=== PATIENT | male | born 1975 | race Two or more races ===

== ENCOUNTER 2020-04-02 14:53 | Inpatient (IN) | payer SELFPAY ==
[~2020-04-02] VITALS: Ht 190.5 cm; Wt 113.9 kg
[2020-04-02 17:45] LABS: BILIRUBIN,URINE NEGATIVE (NEG); CLARITY,URINE CLEAR; COLOR,URINE YELLOW; NITRITE,URINE NEGATIVE (NEG); PROTEIN,URINE NEGATIVE (NEG-TRACE)
[2020-04-02] MEDS ORDERED: ONDANSETRON PF 4 MG/2 ML VIAL. IV ONE (17:45)
[2020-04-02] MEDS ORDERED: IV NORMAL SALINE 1000ML BAG 1,000 ML IV ONE (17:45)
[2020-04-02] MEDS ORDERED: MORPHINE SULFATE 4 MG/ML VIAL. IV ONE (17:45)
[2020-04-02 17:49] LABS: BACTERIA,URINE 0 /HPF (0-FEW); RBC,URINE 0 /HPF (0-2); WBC,URINE 0 /HPF (0-4)
[2020-04-02] MEDS ORDERED: IOHEXOL 300 MG/ML 100ML VIAL. IV ONE (18:15)
[2020-04-02 18:24] LABS: BASO % 0 % (0-3); EOS % 0 % (0-3); HEMATOCRIT 31.2 % (39.0-53.0); HEMOGLOBIN 10.8 g/dL (13.0-17.5); LYMPH # 0.5 x10^3/uL (1.0-4.8); LYMPH % 13 % (24-48); MEAN CORPUSCULAR HEMOGLOBIN 32 pg (25-35); MEAN CORPUSCULAR HGB CONC 35 g/dL (31-37); MEAN CORPUSCULAR VOLUME 93 fL (79-100); MONO # 0.1 x10^3/uL (0.0-1.1); MONO % 3 % (0-9); NEUT # 3.6 x10^3/uL (1.8-7.7); NEUT % 84 % (31-73); PLATELET COUNT 37 x10^3/uL (140-400); RED BLOOD COUNT 3.36 x10^6/uL (4.30-5.70); RED CELL DISTRIBUTION WIDTH 15.9 % (11.5-14.5); WHITE BLOOD COUNT 4.3 x10^3/uL (4.0-11.0)
[2020-04-02 18:33] LABS: CREATININE 0.7 mg/dL (0.7-1.3); GFR 121.4; POTASSIUM 4.4 mmol/L (3.5-5.1); PROTHROMBIN TIME PATIENT 18.3 SEC (11.7-14.0)
[2020-04-02 18:38] LABS: ALBUMIN 2.8 g/dL (3.4-5.0); ALBUMIN/GLOBULIN RATIO 0.7 (1.0-1.7); MAGNESIUM 1.8 mg/dL (1.8-2.4); TOTAL BILIRUBIN 4.3 mg/dL (0.2-1.0); TOTAL PROTEIN 6.8 g/dL (6.4-8.2)
[2020-04-02] MEDS ORDERED: CONTRAST GIVEN. MC PRN (19:00)
--- NOTE | 2020-04-02 19:08 | PHYS DOC ---
Past Medical History Past Medical History: Liver Disease Additional Past Medical Histor: LIVER CERRHOSIS, 3 ABD HERNIAS (BHAVIK BOLANOS APRN) Past Surgical History: No Surgical History (BHAVIK BOLANOS APRN) Smoking Status: Never Smoker Alcohol Use: Sober (BHAVIK BOLANOS APRN) General Adult EDM: Chief Complaint: ABDOMINAL PAIN HPI: HPI: Patient is a 44 year old male, accompanied by his , presents to the emergency department with complaints of dull abdominal pain around his umbilicus that began 6 days ago and became severe today. Patient reports history of alcoholic cirrhosis and 3 abdominal hernias. He reports that he noticed bruising and bulging of his bellybutton today that was abnormal for him. Patient states that the pain radiates to his groin and that he is unable to stand straight because the pain is so severe. Patient reports that he stopped drinking alcohol 9 months ago. He denies any abdominal bloating, confusion, nausea, vomiting, or diarrhea. The patient denies any recent heavy lifting or coughing he currently rates his pain a 10 out of 10 on the pain scale pain is worse if the area is touched, there are no alleviating factors. (BHAVIK BOLANOS PRESIDENT [employer]) Review of Systems: Review of Systems: Constitutional: Denies fever or chills. [] HENT: Denies nasal congestion or sore throat. [] Respiratory: Denies cough or shortness of breath. [] Cardiovascular: Denies chest pain or edema. [] GI: See HPI. [] : Denies dysuria. [] Musculoskeletal: Denies back pain or joint pain. [] Integument: Denies rash. [] Neurologic: Denies headache, focal weakness or sensory changes. [] Psychiatric: Denies depression or anxiety. [ Complete ROS is negative unless otherwise stated in the HPI.] (BHAVIK BOLANOS APRN) Heart Score: Risk Factors: Risk Factors: DM, Current or recent (<one month) smoker, HTN, HLP, family history of CAD, obesity. Risk Scores: Score 0 - 3: 2.5% MACE over next 6 weeks - Discharge Home Score 4 - 6: 20.3% MACE over next 6 weeks - Admit for Clinical Observation Score 7 - 10: 72.7% MACE over next 6 weeks - Early Invasive Strategies (BHAVIK BOLANOS PRESIDENT [employer] AC[employer]ION) Current Medications: Current Medications Medications (Trade) Dose Ordered Sig/West Start Time Stop Time Status Last Admin Dose Admin Iohexol (Omnipaque 300 Mg/ml) 75 ml 1X ONCE 04/02/20 18:15 04/02/20 18:19 DC 04/02/20 18:15 75 ML Morphine Sulfate (Morphine Sulfate) 4 mg 1X ONCE 04/02/20 17:45 04/02/20 17:46 DC 04/02/20 18:41 4 MG Ondansetron HCl (Zofran) 4 mg 1X ONCE 04/02/20 17:45 04/02/20 17:46 DC 04/02/20 18:41 4 MG Sodium Chloride 1,000 ml @ 1,000 mls/hr 1X ONCE 04/02/20 17:45 04/02/20 18:44 DC 04/02/20 18:45 1,000 MLS/HR (BHAVIK BOLANOS PRES[employer]ION) Allergies: Allergies: Allergies Coded Allergies Type Severity Reaction Last Updated Verified No Known Drug Allergies 04/02/20 No (BHAVIK BOLANOS [employer]) Physical Exam: PE: Constitutional: Well developed, well nourished, no acute distress, non-toxic appearance, obese. [] HENT: Normocephalic, atraumatic, bilateral external ears normal, nose normal. [] Eyes: PERRLA, EOMI, conjunctiva normal, no discharge. [] Neck: Normal range of motion,, no stridor. [] Cardiovascular:Heart rate regular rhythm, no murmur [] Lungs & Thorax: Bilateral breath sounds clear to auscultation. Respirations even and unlabored, no retractions, no respiratory distress [] Abdomen: Bowel sounds normal, bulging and purplish discoloration noted to the umbilicus concerning for incarcerated hernia, lower abdomen tender to palpation bilaterally with no rebound tenderness or guarding Testicles: No edema, no erythema, no warmth, nontender to palpation Skin: Warm, dry, no erythema, no rash. [] Extremities: No cyanosis, ROM intact, no edema. [] Neurologic: Alert and oriented X 3, no focal deficits noted. [] Psychologic: Affect normal, judgement normal, mood normal. [] (BHAVIK BOLANOS APRN) Current Patient Data: Labs: Laboratory Tests Test 04/02/20 16:00 04/02/20 18:00 Urine Collection Type Unknown Urine Color Yellow Urine Clarity Clear Urine pH 7.0 (<5.0-8.0) Urine Specific [place] 1.025 (1.000-1.030) Urine Protein Negative mg/dL (NEG-TRACE) Urine Glucose (UA) Negative mg/dL (NEG) Urine Ketones (Stick) Trace mg/dL (NEG) Urine Blood Negative (NEG) Urine Nitrite Negative (NEG) Urine Bilirubin Negative (NEG) Urine Urobilinogen Dipstick 1.0 mg/dL (0.2 mg/dL) Urine Leukocyte Esterase Negative (NEG) Urine RBC 0 /HPF (0-2) Urine WBC 0 /HPF (0-4) Urine Bacteria 0 /HPF (0-FEW) White Blood Count 4.3 x10^3/uL (4.0-11.0) Red Blood Count 3.36 x10^6/uL (4.30-5.70) L Hemoglobin 10.8 g/dL (13.0-17.5) L Hematocrit 31.2 % (39.0-53.0) L Mean Corpuscular Volume 93 fL (79-100) Mean Corpuscular Hemoglobin 32 pg (25-35) Mean Corpuscular Hemoglobin Concent 35 g/dL (31-37) Red Cell Distribution Width 15.9 % (11.5-14.5) H Platelet Count 37 x10^3/uL (140-400) L Neutrophils (%) (Auto) 84 % (31-73) H Lymphocytes (%) (Auto) 13 % (24-48) L Monocytes (%) (Auto) 3 % (0-9) Eosinophils (%) (Auto) 0 % (0-3) Basophils (%) (Auto) 0 % (0-3) Neutrophils # (Auto) 3.6 x10^3/uL (1.8-7.7) Lymphocytes # (Auto) 0.5 x10^3/uL (1.0-4.8) L Monocytes # (Auto) 0.1 x10^3/uL (0.0-1.1) Eosinophils # (Auto) 0.0 x10^3/uL (0.0-0.7) Basophils # (Auto) 0.0 x10^3/uL (0.0-0.2) Platelet Estimate Pending Prothrombin Time 18.3 SEC (11.7-14.0) H Prothrombin Time INR 1.6 (0.8-1.1) H Activated Partial Thromboplast Time 51 SEC (24-38) H Sodium Level 140 mmol/L (136-145) Potassium Level 4.4 mmol/L (3.5-5.1) Chloride Level 107 mmol/L (98-107) Carbon Dioxide Level 25 mmol/L (21-32) Anion Gap 8 (6-14) Blood Urea Nitrogen 18 mg/dL (8-26) Creatinine 0.7 mg/dL (0.7-1.3) Estimated GFR (Cockcroft-Gault) 121.4 BUN/Creatinine Ratio 26 (6-20) H Glucose Level 113 mg/dL (70-99) H Calcium Level 9.0 mg/dL (8.5-10.1) Magnesium Level 1.8 mg/dL (1.8-2.4) Total Bilirubin 4.3 mg/dL (0.2-1.0) H Aspartate Amino Transferase (AST) 49 U/L (15-37) H Alanine Aminotransferase (ALT) 42 U/L (16-63) Alkaline Phosphatase 182 U/L (46-116) H Ammonia < 10 mcmol/L (11-34) L Total Protein 6.8 g/dL (6.4-8.2) Albumin 2.8 g/dL (3.4-5.0) L Albumin/Globulin Ratio 0.7 (1.0-1.7) L Lipase 159 U/L (73-393) Laboratory Tests 04/02/20 18:00 Laboratory Tests 04/02/20 18:00 Vital Signs: Vital Signs Date Time Temp Pulse Resp B/P (MAP) Pulse Ox O2 Delivery O2 Flow Rate FiO2 04/02/20 18:41 16 99 Room Air 04/02/20 17:04 98.4 172/65 (100) 98.4 (BHAVIK BOLANOS APRN) EKG: EKG: [] (BHAVIK BOLANOS APRN) Radiology/Procedures: Radiology/Procedures: PROCEDURE: CT ABD PELV W/ IV CONTRST ONLY Exam: CT of abdomen and pelvis with contrast INDICATION: Periumbilical pain and discoloration TECHNIQUE: Sequential axial images through the abdomen and pelvis obtained following the administration of 75 mL of Omni 300 IV contrast. Sagittal and coronal reformatted images were reconstructed from the axial data and reviewed. Comparisons: None FINDINGS: Heart size is normal. No pericardial effusion. Visualized lung bases are clear. No pleural effusion. Cirrhotic morphology of the liver. Spleen is severely enlarged measuring 22.6 cm. Spleen, pancreas, and adrenals are unremarkable. Gallbladder is mildly distended. No perinephric inflammation or hydronephrosis. No renal or ureteral calculi are identified. Bladder is decompressed not well evaluated. Prostate is not enlarged. There is a umbilical hernia which contains a short segment of small bowel which is dilated. There is a small bowel obstruction related to this hernia. Trace free fluid in the pelvis. Remainder large and small bowel are unremarkable. No free intra-abdominal air. Abdominal aorta has a normal course and caliber. Extensive abdominal collateral vessels are noted. No enlarged abdominal lymph nodes are identified. No suspicious osseous lesions or acute fractures. IMPRESSION: 1. Umbilical hernia which contains a short segment of dilated small bowel with adjacent inflammatory changes. There is associated small bowel obstruction caused by this hernia. 2. Cirrhotic morphology of liver with secondary sequela of portal hypertension including trace intra-abdominal ascites, and intra-abdominal collateral vessels and massive splenomegaly Exposure: One or more of the following in the visualized dose reduction techniques were utilized for this examination: 1. Automated exposure control 2. Adjustment of the MA and/or KV according to patient size 3. Use of iterative of reconstructive technique FOR INTERNAL CODING PURPOSES Critical result: Findings discussed with BHAVIK BOLANOS at 04/02/2020 7:06 PM. RESULT CODE: (C) [] PROCEDURE: KUB EXAM: Supine AP view of the abdomen DATE: 04/02/2020 8:26 PM INDICATION: NG INSERTION COMPARISON: No Prior FINDINGS/ IMPRESSION: Only the upper abdomen is included in the [id number]. NG tube tip terminates over the body of the stomach. Moderate colonic stool content. (BHAVIK BOLANOS PRESIDENT [employer] ACQU[employer]ION) Course & Med Decision Making: Course & Med Decision Making Pertinent Labs and Imaging studies reviewed. (See chart for details) 1906-call from the radiologist about critical CT results. Per radiologist there is a small bowel obstruction and a possible incarcerated umbilical hernia. 1909-I spoke with Dr. Meng and advised of CT results. I will insert a NG tube and have patient remain n.p.o. We will also order rapid COVID testing. 1921-spoke with Dr. Hernandez who is the admitting physician, and care was assumed following discussion of patient. Patient's vital signs stable. Patient remains afebrile, appears nontoxic, respirations even and unlabored. Patient will be admitted to the medical surgical floor. Patient's case and plan of care also discussed with Dr. Berman [] (BHAVIK BOLANOS APRN) Course & Med Decision Making I have reviewed the PA/[employer] SE[employer]ER's note and Plan of Care. I was available for consultation as needed during the patient's visit in the emergency department. I agree with the clinical impression, plans and disposition. (BERNADINE BERMAN MD) Dragon Disclaimer: Dragon Disclaimer: This electronic medical record was generated, in whole or in part, using a voice recognition dictation system. (BHAVIK BOLANOS APRN) Departure Departure Impression: Primary Impression: Incarcerated hernia Additional Impression: SBO (small bowel obstruction) Disposition: ADMITTED INPATIENT Admitting Physician: VIANNEY Moore) (BHAVIK BOLANOS APRN) Condition: STABLE Referrals: NO PCP (PCP) Justicifation of Admission Dx: Justifications for Admission: Justification of Admission Dx: Yes Comments: SBO, incarcerated hernia (BHAVIK BOLANOS APRN) BHAVIK BOLANOS APRN Apr 02, 2020 19:08 BERNADINE BERMAN MD Apr 03, 2020 01:14
--- NOTE | 2020-04-02 19:15 | RAD ---
Exam: CT of abdomen and pelvis with contrast INDICATION: Periumbilical pain and discoloration TECHNIQUE: Sequential axial images through the abdomen and pelvis obtained following the administration of 75 mL of Omni 300 IV contrast. Sagittal and coronal reformatted images were reconstructed from the axial data and reviewed. Comparisons: None FINDINGS: Heart size is normal. No pericardial effusion. Visualized lung bases are clear. No pleural effusion. Cirrhotic morphology of the liver. Spleen is severely enlarged measuring 22.6 cm. Spleen, pancreas, and adrenals are unremarkable. Gallbladder is mildly distended. No perinephric inflammation or hydronephrosis. No renal or ureteral calculi are identified. Bladder is decompressed not well evaluated. Prostate is not enlarged. There is a umbilical hernia which contains a short segment of small bowel which is dilated. There is a small bowel obstruction related to this hernia. Trace free fluid in the pelvis. Remainder large and small bowel are unremarkable. No free intra-abdominal air. Abdominal aorta has a normal course and caliber. Extensive abdominal collateral vessels are noted. No enlarged abdominal lymph nodes are identified. No suspicious osseous lesions or acute fractures. IMPRESSION: 1. Umbilical hernia which contains a short segment of dilated small bowel with adjacent inflammatory changes. There is associated small bowel obstruction caused by this hernia. 2. Cirrhotic morphology of liver with secondary sequela of portal hypertension including trace intra-abdominal ascites, and intra-abdominal collateral vessels and massive splenomegaly Exposure: One or more of the following in the visualized dose reduction techniques were utilized for this examination: 1. Automated exposure control 2. Adjustment of the MA and/or KV according to patient size 3. Use of iterative of reconstructive technique FOR INTERNAL CODING PURPOSES Critical result: Findings discussed with BHAVIK BOLANOS at 04/02/2020 7:06 PM. RESULT CODE: (C) Electronically signed by: Kiya Rossi MD (04/02/2020 7:13 PM) [id number]
[2020-04-02 19:18] LABS: PLT ESTIMATE DECREASED (ADEQUATE)
[2020-04-02 19:20] LABS: SCHISTOCYTES OCC
[2020-04-02] MEDS ORDERED: guaiFENesin ORAL 200 MG/10 ML LIQUID. PO PRN (19:45)
[2020-04-02] MEDS ORDERED: LORazepam 0.5 MG TABLET PO PRN (19:45)
[2020-04-02] MEDS ORDERED: ZOLPIDEM 5 MG TABLET. PO PRN (19:45)
[2020-04-02] MEDS ORDERED: DOCUSATE SODIUM 100 MG CAPSULE. PO PRN (19:45)
[2020-04-02] MEDS ORDERED: ALBUTEROL SULFATE 2.5 MG/3 ML NEBU. NEB PRN (19:45)
[2020-04-02] MEDS ORDERED: diphenhydrAMINE 50 MG/ML VIAL IVP PRN (19:45)
--- NOTE | 2020-04-02 20:51 | RAD ---
EXAM: Supine AP view of the abdomen DATE: 04/02/2020 8:26 PM INDICATION: NG INSERTION COMPARISON: No Prior FINDINGS/ IMPRESSION: Only the upper abdomen is included in the [id number]. NG tube tip terminates over the body of the stomach. Moderate colonic stool content. Electronically signed by: Junior Salinas MD (04/02/2020 8:48 PM) [facility]ARA
[2020-04-02] MEDS: IV NORMAL SALINE 1000ML BAG 1,000 ML IV SCH (21:00)
[2020-04-02 21:30] VITALS: BP 148/59
--- NOTE | 2020-04-02 21:30 | NUR ---
The patient, ЕЛЕНА NEFF, 44 y/o, M admitted by LOBO KWAN MD, was given written information regarding hospital policies, unit procedures and contact persons. RN received report from Consuelo CUMMINGS in the ED at 2113, patient was then transported from the ED to room 440 via gurney at 2129. RN performed a head to toe assessment at that time, VSS, afebrile, and pain rated a 10/10 at that time. Bed is in lowest locked position and call light is within reach. Valuables were checked and left in the room with the patient. RN will continue to monitor patient closely.
[2020-04-02] MEDS: fentaNYL PF VIAL 100 MCG/2 ML VIAL IVP PRN (21:45)
[2020-04-02 23:00] VITALS: BP 138/61
[2020-04-03] VITALS (12 sets, daily range): BP systolic 126–156; BP diastolic 56–80
[2020-04-03] MEDS: fentaNYL PF VIAL 100 MCG/2 ML VIAL IVP PRN ×3 (01:48→07:51)
--- NOTE | 2020-04-03 04:20 | NUR ---
Patients NG has put out 150cc of dark red blood since admission. MD and surgeon aware of this and NG is to remain in place per surgeons orders.
[2020-04-03 04:53] LABS: BASO % 0 % (0-3); EOS # 0.1 x10^3/uL (0.0-0.7); EOS % 1 % (0-3); HEMATOCRIT 30.8 % (39.0-53.0); HEMOGLOBIN 10.7 g/dL (13.0-17.5); LYMPH % 16 % (24-48); MEAN CORPUSCULAR HEMOGLOBIN 32 pg (25-35); MEAN CORPUSCULAR HGB CONC 35 g/dL (31-37); MEAN CORPUSCULAR VOLUME 92 fL (79-100); MONO # 0.4 x10^3/uL (0.0-1.1); MONO % 6 % (0-9); NEUT # 4.8 x10^3/uL (1.8-7.7); NEUT % 77 % (31-73); PLATELET COUNT 40 x10^3/uL (140-400); RED BLOOD COUNT 3.35 x10^6/uL (4.30-5.70); RED CELL DISTRIBUTION WIDTH 15.9 % (11.5-14.5); WHITE BLOOD COUNT 6.3 x10^3/uL (4.0-11.0)
[2020-04-03 05:09] LABS: CALCIUM 8.3 mg/dL (8.5-10.1); CREATININE 0.6 mg/dL (0.7-1.3); POTASSIUM 4.2 mmol/L (3.5-5.1)
[2020-04-03] MEDS: IV NORMAL SALINE 1000ML BAG 1,000 ML IV SCH ×3 (07:00→14:44)
[2020-04-03] MEDS: ONDANSETRON PF 4 MG/2 ML VIAL. IV PRN (07:48)
--- NOTE | 2020-04-03 09:21 | PDOC2 ---
CONSULT Date of Consult Date of Consult DATE: 04/03/20 TIME: 09:15 Reason for Consult Reason for Consult: incarcerated umbilical hernia in setting of cirrhosis Referring Physician Referring Physician: Dr. Florez Identification/Chief Complaint Chief Complaint umbilical pain Source Source: Chart review, Patient History of Present Illness Reason for Visit: 44 yo M with known history of cirrhosis, felt to be secondary to Etoh. Pt has not drank in 10 months. Presents with c/o N/V and umbilical abd pain with non reducible hernia. Pt admitted, hydrated and NGT placed. Initially had some blood in NGT, but this has cleared. Pt denies flatus. Continued controlled nausea and pain. Past Medical History Hepatobiliary: Cirrhosis Past Surgical History Past Surgical History: No pertinent history Family History Family History: No Significant Social History No ALCOHOL: heavy (quit) Current Problem List Problem List Problems Medical Problems: (1) Incarcerated hernia Status: Acute (2) SBO (small bowel obstruction) Status: Acute (3) SOB (shortness of breath) Status: Acute Current Medications Current Medications Current Medications Sodium Chloride 1,000 ml @ 1,000 mls/hr 1X ONCE IV Last administered on 04/02/20at 18:45; Start 04/02/20 at 17:45; Stop 04/02/20 at 18:44; Status DC Ondansetron HCl (Zofran) 4 mg 1X ONCE IV Last administered on 04/02/20at 18:41; Start 04/02/20 at 17:45; Stop 04/02/20 at 17:46; Status DC Morphine Sulfate (Morphine Sulfate) 4 mg 1X ONCE IV Last administered on 04/02/20at 18:41; Start 04/02/20 at 17:45; Stop 04/02/20 at 17:46; Status DC Iohexol (Omnipaque 300 Mg/ml) 75 ml 1X ONCE IV Last administered on 04/02/20at 18:15; Start 04/02/20 at 18:15; Stop 04/02/20 at 18:19; Status DC Sodium Chloride 1,000 ml @ 100 mls/hr Q10H IV ; Start 04/02/20 at 21:00 Ondansetron HCl (Zofran) 4 mg PRN Q4HRS PRN IV NAUSEA/VOMITING Last administered on 04/03/20at 07:48; Start 04/02/20 at 19:45 Zolpidem Tartrate (Ambien) 5 mg PRN QHS PRN PO INSOMNIA; Start 04/02/20 at 19:45 Diphenhydramine HCl (Benadryl) 25 mg PRN Q4HRS PRN IVP ITCHING; Start 04/02/20 at 19:45 Docusate Sodium (Colace) 100 mg PRN BID PRN PO HARD STOOLS; Start 04/02/20 at 19:45 Albuterol Sulfate (Ventolin Neb Soln) 2.5 mg PRN Q4HRS PRN NEB SHORTNESS OF BREATH; Start 04/02/20 at 19:45 Guaifenesin (Robitussin) 200 mg PRN Q4HRS PRN PO COUGH; Start 04/02/20 at 19:45 Lorazepam (Ativan) 0.5 mg PRN Q4HRS PRN PO ANXIETY / AGITATION; Start 04/02/20 at 19:45 Fentanyl Citrate (Fentanyl 2ml Vial) 75 mcg PRN Q2HR PRN IVP SEVERE PAIN 7-10 Last administered on 04/03/20at 07:51; Start 04/02/20 at 19:45 Info (CONTRAST GIVEN -- Rx MONITORING) 1 each PRN DAILY PRN MC SEE COMMENTS; Start 04/02/20 at 19:00; Stop 04/04/20 at 18:59 Allergies Allergies: Coded Allergies: No Known Drug Allergies (Unverified , 04/02/20) ROS Gastrointestinal: Yes Nausea, Yes Vomiting, Yes Abdominal Pain Physical Exam General: Alert, Oriented X3, Cooperative, moderate distress, Other (obese) HEENT: Atraumatic, EOMI, Other (anicteric sclera) Lungs: Normal air movement Abdomen: Other (umbilical mass, non reducible, TTP, purplish discoloration) Extremities: No clubbing, No cyanosis Skin: No rashes, No breakdown Neuro: Normal speech, Sensation intact Psych/Mental Status: Mental status NL, Mood NL Vitals VITALS Vital Signs Date Time Temp Pulse Resp B/P (MAP) Pulse Ox O2 Delivery O2 Flow Rate FiO2 04/03/20 07:51 Room Air 04/03/20 07:00 98.0 90 18 156/61 (92) 96 98.0 Labs Labs Laboratory Tests Test 04/02/20 16:00 04/02/20 18:00 04/02/20 19:35 04/03/20 04:30 Urine Collection Type Unknown Urine Color Yellow Urine Clarity Clear Urine pH 7.0 (<5.0-8.0) Urine Specific [place] 1.025 (1.000-1.030) Urine Protein Negative mg/dL (NEG-TRACE) Urine Glucose (UA) Negative mg/dL (NEG) Urine Ketones (Stick) Trace mg/dL (NEG) Urine Blood Negative (NEG) Urine Nitrite Negative (NEG) Urine Bilirubin Negative (NEG) Urine Urobilinogen Dipstick 1.0 mg/dL (0.2 mg/dL) Urine Leukocyte Esterase Negative (NEG) Urine RBC 0 /HPF (0-2) Urine WBC 0 /HPF (0-4) Urine Bacteria 0 /HPF (0-FEW) White Blood Count 4.3 x10^3/uL (4.0-11.0) 6.3 x10^3/uL (4.0-11.0) Red Blood Count 3.36 x10^6/uL (4.30-5.70) 3.35 x10^6/uL (4.30-5.70) Hemoglobin 10.8 g/dL (13.0-17.5) 10.7 g/dL (13.0-17.5) Hematocrit 31.2 % (39.0-53.0) 30.8 % (39.0-53.0) Mean Corpuscular Volume 93 fL (79-100) 92 fL (79-100) Mean Corpuscular Hemoglobin 32 pg (25-35) 32 pg (25-35) Mean Corpuscular Hemoglobin Concent 35 g/dL (31-37) 35 g/dL (31-37) Red Cell Distribution Width 15.9 % (11.5-14.5) 15.9 % (11.5-14.5) Platelet Count 37 x10^3/uL (140-400) 40 x10^3/uL (140-400) Neutrophils (%) (Auto) 84 % (31-73) 77 % (31-73) Lymphocytes (%) (Auto) 13 % (24-48) 16 % (24-48) Monocytes (%) (Auto) 3 % (0-9) 6 % (0-9) Eosinophils (%) (Auto) 0 % (0-3) 1 % (0-3) Basophils (%) (Auto) 0 % (0-3) 0 % (0-3) Neutrophils # (Auto) 3.6 x10^3/uL (1.8-7.7) 4.8 x10^3/uL (1.8-7.7) Lymphocytes # (Auto) 0.5 x10^3/uL (1.0-4.8) 1.0 x10^3/uL (1.0-4.8) Monocytes # (Auto) 0.1 x10^3/uL (0.0-1.1) 0.4 x10^3/uL (0.0-1.1) Eosinophils # (Auto) 0.0 x10^3/uL (0.0-0.7) 0.1 x10^3/uL (0.0-0.7) Basophils # (Auto) 0.0 x10^3/uL (0.0-0.2) 0.0 x10^3/uL (0.0-0.2) Platelet Estimate Decreased (ADEQUATE) Schistocytes Occ Prothrombin Time 18.3 SEC (11.7-14.0) Prothromb Time International Ratio 1.6 (0.8-1.1) Activated Partial Thromboplast Time 51 SEC (24-38) Sodium Level 140 mmol/L (136-145) 138 mmol/L (136-145) Potassium Level 4.4 mmol/L (3.5-5.1) 4.2 mmol/L (3.5-5.1) Chloride Level 107 mmol/L (98-107) 107 mmol/L (98-107) Carbon Dioxide Level 25 mmol/L (21-32) 23 mmol/L (21-32) Anion Gap 8 (6-14) 8 (6-14) Blood Urea Nitrogen 18 mg/dL (8-26) 17 mg/dL (8-26) Creatinine 0.7 mg/dL (0.7-1.3) 0.6 mg/dL (0.7-1.3) Estimated GFR (Cockcroft-Gault) 121.4 145.0 BUN/Creatinine Ratio 26 (6-20) Glucose Level 113 mg/dL (70-99) 97 mg/dL (70-99) Calcium Level 9.0 mg/dL (8.5-10.1) 8.3 mg/dL (8.5-10.1) Magnesium Level 1.8 mg/dL (1.8-2.4) Total Bilirubin 4.3 mg/dL (0.2-1.0) Aspartate Amino Transf (AST/SGOT) 49 U/L (15-37) Alanine Aminotransferase (ALT/SGPT) 42 U/L (16-63) Alkaline Phosphatase 182 U/L (46-116) Ammonia < 10 mcmol/L (11-34) Total Protein 6.8 g/dL (6.4-8.2) Albumin 2.8 g/dL (3.4-5.0) Albumin/Globulin Ratio 0.7 (1.0-1.7) Lipase 159 U/L (73-393) SARS-CoV-2 Antigen (Rapid) Negative (NEGATIVE) Laboratory Tests Test 04/02/20 16:00 04/02/20 18:00 04/02/20 19:35 04/03/20 04:30 Urine Collection Type Unknown Urine Color Yellow Urine Clarity Clear Urine pH 7.0 (<5.0-8.0) Urine Specific [place] 1.025 (1.000-1.030) Urine Protein Negative mg/dL (NEG-TRACE) Urine Glucose (UA) Negative mg/dL (NEG) Urine Ketones (Stick) Trace mg/dL (NEG) Urine Blood Negative (NEG) Urine Nitrite Negative (NEG) Urine Bilirubin Negative (NEG) Urine Urobilinogen Dipstick 1.0 mg/dL (0.2 mg/dL) Urine Leukocyte Esterase Negative (NEG) Urine RBC 0 /HPF (0-2) Urine WBC 0 /HPF (0-4) Urine Bacteria 0 /HPF (0-FEW) White Blood Count 4.3 x10^3/uL (4.0-11.0) 6.3 x10^3/uL (4.0-11.0) Red Blood Count 3.36 x10^6/uL (4.30-5.70) 3.35 x10^6/uL (4.30-5.70) Hemoglobin 10.8 g/dL (13.0-17.5) 10.7 g/dL (13.0-17.5) Hematocrit 31.2 % (39.0-53.0) 30.8 % (39.0-53.0) Mean Corpuscular Volume 93 fL (79-100) 92 fL (79-100) Mean Corpuscular Hemoglobin 32 pg (25-35) 32 pg (25-35) Mean Corpuscular Hemoglobin Concent 35 g/dL (31-37) 35 g/dL (31-37) Red Cell Distribution Width 15.9 % (11.5-14.5) 15.9 % (11.5-14.5) Platelet Count 37 x10^3/uL (140-400) 40 x10^3/uL (140-400) Neutrophils (%) (Auto) 84 % (31-73) 77 % (31-73) Lymphocytes (%) (Auto) 13 % (24-48) 16 % (24-48) Monocytes (%) (Auto) 3 % (0-9) 6 % (0-9) Eosinophils (%) (Auto) 0 % (0-3) 1 % (0-3) Basophils (%) (Auto) 0 % (0-3) 0 % (0-3) Neutrophils # (Auto) 3.6 x10^3/uL (1.8-7.7) 4.8 x10^3/uL (1.8-7.7) Lymphocytes # (Auto) 0.5 x10^3/uL (1.0-4.8) 1.0 x10^3/uL (1.0-4.8) Monocytes # (Auto) 0.1 x10^3/uL (0.0-1.1) 0.4 x10^3/uL (0.0-1.1) Eosinophils # (Auto) 0.0 x10^3/uL (0.0-0.7) 0.1 x10^3/uL (0.0-0.7) Basophils # (Auto) 0.0 x10^3/uL (0.0-0.2) 0.0 x10^3/uL (0.0-0.2) Platelet Estimate Decreased (ADEQUATE) Schistocytes Occ Prothrombin Time 18.3 SEC (11.7-14.0) Prothromb Time International Ratio 1.6 (0.8-1.1) Activated Partial Thromboplast Time 51 SEC (24-38) Sodium Level 140 mmol/L (136-145) 138 mmol/L (136-145) Potassium Level 4.4 mmol/L (3.5-5.1) 4.2 mmol/L (3.5-5.1) Chloride Level 107 mmol/L (98-107) 107 mmol/L (98-107) Carbon Dioxide Level 25 mmol/L (21-32) 23 mmol/L (21-32) Anion Gap 8 (6-14) 8 (6-14) Blood Urea Nitrogen 18 mg/dL (8-26) 17 mg/dL (8-26) Creatinine 0.7 mg/dL (0.7-1.3) 0.6 mg/dL (0.7-1.3) Estimated GFR (Cockcroft-Gault) 121.4 145.0 BUN/Creatinine Ratio 26 (6-20) Glucose Level 113 mg/dL (70-99) 97 mg/dL (70-99) Calcium Level 9.0 mg/dL (8.5-10.1) 8.3 mg/dL (8.5-10.1) Magnesium Level 1.8 mg/dL (1.8-2.4) Total Bilirubin 4.3 mg/dL (0.2-1.0) Aspartate Amino Transf (AST/SGOT) 49 U/L (15-37) Alanine Aminotransferase (ALT/SGPT) 42 U/L (16-63) Alkaline Phosphatase 182 U/L (46-116) Ammonia < 10 mcmol/L (11-34) Total Protein 6.8 g/dL (6.4-8.2) Albumin 2.8 g/dL (3.4-5.0) Albumin/Globulin Ratio 0.7 (1.0-1.7) Lipase 159 U/L (73-393) SARS-CoV-2 Antigen (Rapid) Negative (NEGATIVE) Images Images CT with incarcerated umbilical hernia, evidence of cirrhosis with portal hypertension Assessment/Plan Assessment/Plan incarcerated umbilical hernia attempts at conservative management unsuccessful with NGT and bowel rest. TO OR for umbilical hernia repair, possible bowel resection. R/R/B/A d/w pt and pt's family. Risks, including, but not limited to: bleeding, infection, damage to surrounding structures, risk of anesthesia, risk of recurrence. He is at high risk of perioperative complications given significant cirrhosis. They appear to understand, their questions are answered and they elect to proceed. Thanks for consult! LAURA BISHOP MD Apr 03, 2020 09:21
[2020-04-03] MEDS ORDERED: MORPHINE SULFATE 2 MG/ML VIAL. IV PRN (09:45)
[2020-04-03] MEDS ORDERED: IV RINGERS,LACTATED 1000ML 1,000 ML IV SCH (09:45)
[2020-04-03] MEDS ORDERED: ONDANSETRON PF 4 MG/2 ML VIAL. IV PRN (09:45)
[2020-04-03] MEDS ORDERED: fentaNYL PF VIAL 100 MCG/2 ML VIAL IV PRN (09:45)
[2020-04-03] MEDS ORDERED: HYDROmorphone 2 MG/ML VIAL IV PRN (09:45)
[2020-04-03] MEDS ORDERED: SEVOFLURANE > 120 MINUTES. IH ONE (10:49)
[2020-04-03] MEDS ORDERED: fentaNYL PF VIAL 100 MCG/2 ML VIAL ONE ×2 (10:49→13:05)
[2020-04-03] MEDS ORDERED: SUCCINYLCHOLINE 200 MG/10 ML VIAL. ONE (10:49)
[2020-04-03] MEDS ORDERED: ROCURONIUM 50 MG/5 ML VIAL. ONE ×2 (10:50→13:24)
[2020-04-03] MEDS ORDERED: ONDANSETRON PF 4 MG/2 ML VIAL. ONE (10:50)
[2020-04-03] MEDS ORDERED: LIDOCAINE 2% PF 5 ML VIAL. ONE ×2 (10:50→13:58)
[2020-04-03] MEDS ORDERED: NEOSTIGMINE METHYLSULFATE 5 MG/5 ML SYRINGE. ONE (10:50)
[2020-04-03] MEDS ORDERED: GLYCOPYRROLATE 1 MG/5 ML VIAL. ONE (10:50)
[2020-04-03] MEDS ORDERED: PROPOFOL 10 MG/ML (20ML) VIAL. IV ONE ×2 (10:50→13:57)
[2020-04-03] MEDS ORDERED: DEXAMETHASONE SOD PHOS 4 MG/ML VIAL ONE (10:50)
[2020-04-03] MEDS ORDERED: diphenhydrAMINE HCL 25 MG CAPSULE PO PRN (11:00)
[2020-04-03] MEDS ORDERED: ACETAMINOPHEN 325 MG TABLET. PO PRN (11:00)
[2020-04-03] MEDS ORDERED: diphenhydrAMINE ORAL ELIXIR 12.5 MG/5 ML ML PO PRN (11:00)
[2020-04-03] MEDS ORDERED: HYDROmorphone 2 MG/ML VIAL IVP PRN (11:00)
[2020-04-03] MEDS ORDERED: BUPIVACAINE-EPI 0.5%-1:200000 MPF 30 ML VIAL. ONE (11:46)
--- NOTE | 2020-04-03 11:58 | PDOC1 ---
History and Physical Date of Service: DOS: DATE: 04/03/20 TIME: 11:46 Chief Complaint: Chief Complain: Abdominal pain History of Present Illness: HPI: 44 year old male, accompanied by his , presents to the emergency department with complaints of dull abdominal pain around his umbilicus that began 6 days ago and became severe today. Patient reports history of alcoholic cirrhosis and 3 abdominal hernias. He reports that he noticed bruising and bulging of his bellybutton today that was abnormal for him. Patient states that the pain radiates to his groin and that he is unable to stand straight because the pain is so severe. Patient reports that he stopped drinking alcohol 9 months ago. He denies any abdominal bloating, confusion, nausea, vomiting, or diarrhea. The patient denies any recent heavy lifting or coughing he currently rates his pain a 10 out of 10 on the pain scale pain is worse if the area is touched, there are no alleviating factors. Past Medical/Surgical History: PMH/PSH: Liver cirrhosis with meld score of 18 Numerous abdominal hernias No surgical history Allergies: Allergies: Coded Allergies: No Known Drug Allergies (Unverified , 04/02/20) Family History: Family History: Reviewed and none reported Social History: Social History: Previous heavy EtOH drinker, quit 9 months ago Denies drug or tobacco abuse Current Medications: Current Medications Current Medications Sodium Chloride 1,000 ml @ 1,000 mls/hr 1X ONCE IV Last administered on 04/02/20at 18:45; Start 04/02/20 at 17:45; Stop 04/02/20 at 18:44; Status DC Ondansetron HCl (Zofran) 4 mg 1X ONCE IV Last administered on 04/02/20at 18:41; Start 04/02/20 at 17:45; Stop 04/02/20 at 17:46; Status DC Morphine Sulfate (Morphine Sulfate) 4 mg 1X ONCE IV Last administered on 04/02/20at 18:41; Start 04/02/20 at 17:45; Stop 04/02/20 at 17:46; Status DC Iohexol (Omnipaque 300 Mg/ml) 75 ml 1X ONCE IV Last administered on 04/02/20at 18:15; Start 04/02/20 at 18:15; Stop 04/02/20 at 18:19; Status DC Sodium Chloride 1,000 ml @ 100 mls/hr Q10H IV Last administered on 04/03/20at 07:00; Start 04/02/20 at 21:00 Ondansetron HCl (Zofran) 4 mg PRN Q4HRS PRN IV NAUSEA/VOMITING Last administered on 04/03/20at 07:48; Start 04/02/20 at 19:45 Zolpidem Tartrate (Ambien) 5 mg PRN QHS PRN PO INSOMNIA; Start 04/02/20 at 19:45 Diphenhydramine HCl (Benadryl) 25 mg PRN Q4HRS PRN IVP ITCHING; Start 04/02/20 at 19:45 Docusate Sodium (Colace) 100 mg PRN BID PRN PO HARD STOOLS; Start 04/02/20 at 19:45 Albuterol Sulfate (Ventolin Neb Soln) 2.5 mg PRN Q4HRS PRN NEB SHORTNESS OF BREATH; Start 04/02/20 at 19:45 Guaifenesin (Robitussin) 200 mg PRN Q4HRS PRN PO COUGH; Start 04/02/20 at 19:45 Lorazepam (Ativan) 0.5 mg PRN Q4HRS PRN PO ANXIETY / AGITATION; Start 04/02/20 at 19:45 Fentanyl Citrate (Fentanyl 2ml Vial) 75 mcg PRN Q2HR PRN IVP SEVERE PAIN 7-10 Last administered on 04/03/20at 07:51; Start 04/02/20 at 19:45 Info (CONTRAST GIVEN -- Rx MONITORING) 1 each PRN DAILY PRN MC SEE COMMENTS; Start 04/02/20 at 19:00; Stop 04/04/20 at 18:59 Ondansetron HCl (Zofran) 4 mg PRN Q6HRS PRN IV NAUSEA/VOMITING; Start 04/03/20 at 09:45; Stop 04/04/20 at 09:44 Fentanyl Citrate (Fentanyl 2ml Vial) 25 mcg PRN Q5MIN PRN IV MILD PAIN 1-3; Start 04/03/20 at 09:45; Stop 04/04/20 at 09:44 Fentanyl Citrate (Fentanyl 2ml Vial) 50 mcg PRN Q5MIN PRN IV MODERATE TO SEVERE PAIN; Start 04/03/20 at 09:45; Stop 04/04/20 at 09:44 Morphine Sulfate (Morphine Sulfate) 1 mg PRN Q10MIN PRN IV SEVERE PAIN 7-10; Start 04/03/20 at 09:45; Stop 04/04/20 at 09:44 Ringer's Solution 1,000 ml @ 30 mls/hr Q24H IV ; Start 04/03/20 at 09:45; Stop 04/03/20 at 21:44 Hydromorphone HCl (Dilaudid) 0.5 mg PRN Q10MIN PRN IV SEV PAIN, Second choice; Start 04/03/20 at 09:45; Stop 04/04/20 at 09:44 Prochlorperazine Edisylate (Compazine) 5 mg PACU PRN PRN IV NAUSEA, MRX1; Start 04/03/20 at 09:45; Stop 04/04/20 at 09:44 Sevoflurane (Ultane) 90 ml STK-MED ONCE IH ; Start 04/03/20 at 10:49; Stop 04/03/20 at 10:50; Status DC Fentanyl Citrate (Fentanyl 2ml Vial) 100 mcg STK-MED ONCE .ROUTE ; Start 04/03/20 at 10:49; Stop 04/03/20 at 10:50; Status DC Succinylcholine Chloride (Anectine) 200 mg STK-MED ONCE .ROUTE ; Start 04/03/20 at 10:49; Stop 04/03/20 at 10:50; Status DC Glycopyrrolate (Robinul) 1 mg STK-MED ONCE .ROUTE ; Start 04/03/20 at 10:50; Stop 04/03/20 at 10:50; Status DC Neostigmine [place] (Neostigmine Methylsulfate) 5 mg STK-MED ONCE .ROUTE ; Start 04/03/20 at 10:50; Stop 04/03/20 at 10:50; Status DC Rocuronium [place] (Zemuron) 50 mg STK-MED ONCE .ROUTE ; Start 04/03/20 at 10:50; Stop 04/03/20 at 10:50; Status DC Propofol (Diprivan) 200 mg STK-MED ONCE IV ; Start 04/03/20 at 10:50; Stop 04/03/20 at 10:50; Status DC Dexamethasone Sodium Phosphate (Decadron) 4 mg STK-MED ONCE .ROUTE ; Start 04/03/20 at 10:50; Stop 04/03/20 at 10:50; Status DC Lidocaine HCl (Lidocaine Pf 2% Vial) 5 ml STK-MED ONCE .ROUTE ; Start 04/03/20 at 10:50; Stop 04/03/20 at 10:50; Status DC Ondansetron HCl (Zofran) 4 mg STK-MED ONCE .ROUTE ; Start 04/03/20 at 10:50; Stop 04/03/20 at 10:50; Status DC Acetaminophen (Tylenol) 650 mg 1X PRN PRN PO PRE-TRANSFUSION; Start 04/03/20 at 11:00; Stop 04/04/20 at 10:59 Diphenhydramine HCl (Benadryl Oral Elixir) 12.5 mg 1X PRN PRN PO PRE- TRANSFUSION; Start 04/03/20 at 11:00; Stop 04/04/20 at 10:59 Diphenhydramine HCl (Benadryl) 25 mg PRN 1X PRN PO PRE-TRANSFUSION; Start 04/03/20 at 11:00; Stop 04/04/20 at 10:59 Hydromorphone HCl (Dilaudid) 0.2 mg PRN Q2HR PRN IVP PAIN; Start 04/03/20 at 11:00 ROS: Review of Systems Review of System REVIEW OF SYSTEMS: GENERAL: Denies weakness SKIN: No bruising, hair changes or rashes. EYES: No blurred, double or loss of vision. NOSE AND THROAT: No history of nosebleeds, hoarseness or sore throat. HEART: No history of palpitations, chest pain or shortness of breath on exertion. LUNGS: Denies cough, hemoptysis, wheezing or shortness of breath. GASTROINTESTINAL: Denies changes in appetite, nausea, vomiting, diarrhea or constipation. GENITOURINARY: No history of frequency, urgency, hesitancy or nocturia. NEUROLOGIC: Denies history of numbness, tingling, or tremor. PSYCHIATRIC: No history of panic, anxiety or depression. ENDOCRINE: No history of heat or cold intolerance, polyuria or polydipsia. EXTREMITIES: Denies joint pain, pain on walking or stiffness. Physical Exam: Vital Signs: Vital Signs Date Time Temp Pulse Resp B/P (MAP) Pulse Ox O2 Delivery O2 Flow Rate FiO2 04/03/20 11:00 97.9 89 18 130/73 (92) 98 Room Air 97.9 Physcial Exam: GEN: No apparent distress. Alert and oriented HEENT: Normal cephalic, atraumatic, external auditory canals are patent EYES: Extraocular muscles are intact, pupil are equally round and reactive to light and accommodation MUSCULOSKELETAL: Well developed , well nourished, good range of motion ENDOCRINE: No thyromegaly was palpated LYMPHATICS: No cervical chain or axillary nodes were noted HEMATOPOIETIC: No bruising NECK: Supple, no JVD, no thyromegaly was noted LUNGS: Clear to auscultation in all lung eason without rhonchi or wheezing HEART: RRR, S!, S2 present. Peripheral pulses intact, no obvious murmurs noted ABDOMEN: Abdomen is distended to palpation and on appearance. And tympanic to percussion. Ecchymotic appearance of the umbilicus. Diffuse tenderness. NG tube draining bile appearing fluid. EXTREMITIES: Without clubbing, cyanosis, or edema. Pedal pulses intact. Negative Homans sign NEUROLOGIC: Normal speech and tone. A&O x 3, moves all extremities, no obvious focal deficits PSYCHIATRIC: Normal affect, normal mood. Stable SKIN: No ulcerations or rashes, good skin turgor, no jaundice VASCULAR: Good capillary refill, neurovascular bundle appears to be intact Labs: Labs: Laboratory Tests Test 04/02/20 16:00 04/02/20 18:00 04/02/20 19:35 04/03/20 04:30 Urine Collection Type Unknown Urine Color Yellow Urine Clarity Clear Urine pH 7.0 (<5.0-8.0) Urine Specific [place] 1.025 (1.000-1.030) Urine Protein Negative mg/dL (NEG-TRACE) Urine Glucose (UA) Negative mg/dL (NEG) Urine Ketones (Stick) Trace mg/dL (NEG) Urine Blood Negative (NEG) Urine Nitrite Negative (NEG) Urine Bilirubin Negative (NEG) Urine Urobilinogen Dipstick 1.0 mg/dL (0.2 mg/dL) Urine Leukocyte Esterase Negative (NEG) Urine RBC 0 /HPF (0-2) Urine WBC 0 /HPF (0-4) Urine Bacteria 0 /HPF (0-FEW) White Blood Count 4.3 x10^3/uL (4.0-11.0) 6.3 x10^3/uL (4.0-11.0) Red Blood Count 3.36 x10^6/uL (4.30-5.70) 3.35 x10^6/uL (4.30-5.70) Hemoglobin 10.8 g/dL (13.0-17.5) 10.7 g/dL (13.0-17.5) Hematocrit 31.2 % (39.0-53.0) 30.8 % (39.0-53.0) Mean Corpuscular Volume 93 fL (79-100) 92 fL (79-100) Mean Corpuscular Hemoglobin 32 pg (25-35) 32 pg (25-35) Mean Corpuscular Hemoglobin Concent 35 g/dL (31-37) 35 g/dL (31-37) Red Cell Distribution Width 15.9 % (11.5-14.5) 15.9 % (11.5-14.5) Platelet Count 37 x10^3/uL (140-400) 40 x10^3/uL (140-400) Neutrophils (%) (Auto) 84 % (31-73) 77 % (31-73) Lymphocytes (%) (Auto) 13 % (24-48) 16 % (24-48) Monocytes (%) (Auto) 3 % (0-9) 6 % (0-9) Eosinophils (%) (Auto) 0 % (0-3) 1 % (0-3) Basophils (%) (Auto) 0 % (0-3) 0 % (0-3) Neutrophils # (Auto) 3.6 x10^3/uL (1.8-7.7) 4.8 x10^3/uL (1.8-7.7) Lymphocytes # (Auto) 0.5 x10^3/uL (1.0-4.8) 1.0 x10^3/uL (1.0-4.8) Monocytes # (Auto) 0.1 x10^3/uL (0.0-1.1) 0.4 x10^3/uL (0.0-1.1) Eosinophils # (Auto) 0.0 x10^3/uL (0.0-0.7) 0.1 x10^3/uL (0.0-0.7) Basophils # (Auto) 0.0 x10^3/uL (0.0-0.2) 0.0 x10^3/uL (0.0-0.2) Platelet Estimate Decreased (ADEQUATE) Schistocytes Occ Prothrombin Time 18.3 SEC (11.7-14.0) Prothromb Time International Ratio 1.6 (0.8-1.1) Activated Partial Thromboplast Time 51 SEC (24-38) Sodium Level 140 mmol/L (136-145) 138 mmol/L (136-145) Potassium Level 4.4 mmol/L (3.5-5.1) 4.2 mmol/L (3.5-5.1) Chloride Level 107 mmol/L (98-107) 107 mmol/L (98-107) Carbon Dioxide Level 25 mmol/L (21-32) 23 mmol/L (21-32) Anion Gap 8 (6-14) 8 (6-14) Blood Urea Nitrogen 18 mg/dL (8-26) 17 mg/dL (8-26) Creatinine 0.7 mg/dL (0.7-1.3) 0.6 mg/dL (0.7-1.3) Estimated GFR (Cockcroft-Gault) 121.4 145.0 BUN/Creatinine Ratio 26 (6-20) Glucose Level 113 mg/dL (70-99) 97 mg/dL (70-99) Calcium Level 9.0 mg/dL (8.5-10.1) 8.3 mg/dL (8.5-10.1) Magnesium Level 1.8 mg/dL (1.8-2.4) Total Bilirubin 4.3 mg/dL (0.2-1.0) Aspartate Amino Transf (AST/SGOT) 49 U/L (15-37) Alanine Aminotransferase (ALT/SGPT) 42 U/L (16-63) Alkaline Phosphatase 182 U/L (46-116) Ammonia < 10 mcmol/L (11-34) Total Protein 6.8 g/dL (6.4-8.2) Albumin 2.8 g/dL (3.4-5.0) Albumin/Globulin Ratio 0.7 (1.0-1.7) Lipase 159 U/L (73-393) SARS-CoV-2 Antigen (Rapid) Negative (NEGATIVE) Laboratory Tests Test 04/02/20 16:00 04/02/20 18:00 04/02/20 19:35 04/03/20 04:30 Urine Collection Type Unknown Urine Color Yellow Urine Clarity Clear Urine pH 7.0 (<5.0-8.0) Urine Specific [place] 1.025 (1.000-1.030) Urine Protein Negative mg/dL (NEG-TRACE) Urine Glucose (UA) Negative mg/dL (NEG) Urine Ketones (Stick) Trace mg/dL (NEG) Urine Blood Negative (NEG) Urine Nitrite Negative (NEG) Urine Bilirubin Negative (NEG) Urine Urobilinogen Dipstick 1.0 mg/dL (0.2 mg/dL) Urine Leukocyte Esterase Negative (NEG) Urine RBC 0 /HPF (0-2) Urine WBC 0 /HPF (0-4) Urine Bacteria 0 /HPF (0-FEW) White Blood Count 4.3 x10^3/uL (4.0-11.0) 6.3 x10^3/uL (4.0-11.0) Red Blood Count 3.36 x10^6/uL (4.30-5.70) 3.35 x10^6/uL (4.30-5.70) Hemoglobin 10.8 g/dL (13.0-17.5) 10.7 g/dL (13.0-17.5) Hematocrit 31.2 % (39.0-53.0) 30.8 % (39.0-53.0) Mean Corpuscular Volume 93 fL (79-100) 92 fL (79-100) Mean Corpuscular Hemoglobin 32 pg (25-35) 32 pg (25-35) Mean Corpuscular Hemoglobin Concent 35 g/dL (31-37) 35 g/dL (31-37) Red Cell Distribution Width 15.9 % (11.5-14.5) 15.9 % (11.5-14.5) Platelet Count 37 x10^3/uL (140-400) 40 x10^3/uL (140-400) Neutrophils (%) (Auto) 84 % (31-73) 77 % (31-73) Lymphocytes (%) (Auto) 13 % (24-48) 16 % (24-48) Monocytes (%) (Auto) 3 % (0-9) 6 % (0-9) Eosinophils (%) (Auto) 0 % (0-3) 1 % (0-3) Basophils (%) (Auto) 0 % (0-3) 0 % (0-3) Neutrophils # (Auto) 3.6 x10^3/uL (1.8-7.7) 4.8 x10^3/uL (1.8-7.7) Lymphocytes # (Auto) 0.5 x10^3/uL (1.0-4.8) 1.0 x10^3/uL (1.0-4.8) Monocytes # (Auto) 0.1 x10^3/uL (0.0-1.1) 0.4 x10^3/uL (0.0-1.1) Eosinophils # (Auto) 0.0 x10^3/uL (0.0-0.7) 0.1 x10^3/uL (0.0-0.7) Basophils # (Auto) 0.0 x10^3/uL (0.0-0.2) 0.0 x10^3/uL (0.0-0.2) Platelet Estimate Decreased (ADEQUATE) Schistocytes Occ Prothrombin Time 18.3 SEC (11.7-14.0) Prothromb Time International Ratio 1.6 (0.8-1.1) Activated Partial Thromboplast Time 51 SEC (24-38) Sodium Level 140 mmol/L (136-145) 138 mmol/L (136-145) Potassium Level 4.4 mmol/L (3.5-5.1) 4.2 mmol/L (3.5-5.1) Chloride Level 107 mmol/L (98-107) 107 mmol/L (98-107) Carbon Dioxide Level 25 mmol/L (21-32) 23 mmol/L (21-32) Anion Gap 8 (6-14) 8 (6-14) Blood Urea Nitrogen 18 mg/dL (8-26) 17 mg/dL (8-26) Creatinine 0.7 mg/dL (0.7-1.3) 0.6 mg/dL (0.7-1.3) Estimated GFR (Cockcroft-Gault) 121.4 145.0 BUN/Creatinine Ratio 26 (6-20) Glucose Level 113 mg/dL (70-99) 97 mg/dL (70-99) Calcium Level 9.0 mg/dL (8.5-10.1) 8.3 mg/dL (8.5-10.1) Magnesium Level 1.8 mg/dL (1.8-2.4) Total Bilirubin 4.3 mg/dL (0.2-1.0) Aspartate Amino Transf (AST/SGOT) 49 U/L (15-37) Alanine Aminotransferase (ALT/SGPT) 42 U/L (16-63) Alkaline Phosphatase 182 U/L (46-116) Ammonia < 10 mcmol/L (11-34) Total Protein 6.8 g/dL (6.4-8.2) Albumin 2.8 g/dL (3.4-5.0) Albumin/Globulin Ratio 0.7 (1.0-1.7) Lipase 159 U/L (73-393) SARS-CoV-2 Antigen (Rapid) Negative (NEGATIVE) Images: Images CT abdomen pelvis IMPRESSION: 1. Umbilical hernia which contains a short segment of dilated small bowel with adjacent inflammatory changes. There is associated small bowel obstruction caused by this hernia. 2. 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 1 pack of platelet transfusion Lovenox for DVT prophylaxis Protonix GI prophylaxis ADA diet Full code Discussed with RN and SW Disposition pending surgery evaluation and procedure Surrogate decision maker is the Justifications for Admission Other Justification LYNNE SMITH MD Apr 03, 2020 11:58
[2020-04-03] MEDS ORDERED: cefOXitin SODIUM IV Push 1 GM VIAL. IVP PRN (12:45)
[2020-04-03] MEDS: fentaNYL PF VIAL 100 MCG/2 ML VIAL IV PRN ×4 (14:19→14:36)
[2020-04-03] MEDS: PROCHLORPERAZINE 10 MG/2 ML VIAL. IV PRN ×2 (14:42→14:55)
[2020-04-03] MEDS: IV RINGERS,LACTATED 1000ML 1,000 ML IV SCH (14:44)
[2020-04-03] MEDS ORDERED: NALOXONE 0.4 MG/ML VIAL. IV PRN (14:45)
[2020-04-03] MEDS ORDERED: 0.9 % SODIUM CHLORIDE 10 ML DISP.SYRIN. IV PRN (14:45)
[2020-04-03] MEDS ORDERED: MORPHINE SULFATE 30 ML IV PRN (14:45)
--- NOTE | 2020-04-03 14:57 | PDOC4 ---
OPERATIVE NOTE Date: Date: Apr 03, 2020 Pre-Op Diagnosis: Incarcerated umbilical hernia Post-Op Diagnosis: same, compromised small bowel Procedure Performed: umbilical hernia repair, small bowel resection Surgeon: Olivier Bishop Anesthesia Type: GETA Blood Loss: 100 Specimans Obtained: hernia sac, small bowel Findings: small umbilical defect with compromised small bowel Complications: none Operative Note: After obtaining informed consent, patient was taken to OR, induced under GETA and prepped in the usual fashion. Attempts at reducing hernia were unsuccessful. Vertical incision was made below umbilicus. Fascia defect identified and hernia sac sharply opened. Small bowel soft, but compromised. Attempts at reducing were unsuccessful. Fascia defect opened inferiorly. Small bowel able to be reduced. Small bowel improved, however, multiple areas of dark tissue, concerning for necrosis. Given patient's comorbidities, favor resection. Small bowel was resected proximal and distal to area of concern with 75 SUJATA. Side to side stapled anastomosis created with 75 SUJATA. End sealed with 75 SUJATA. Mesentery resected with cautery and bleeding vessels controlled with 3 0 vicryl. Small bowel sent to pathology for evaluation. Hernia sac resected and sent to pathology. Mesentery defect repaired with 3 0 vicryl. Anastomosis noted to be patent, under no tension and completely viable. Bowel returned to abdominal cavity. Fascia repaired with 0 looped PDS. Skin repaired with 0 vicryl and 4 0 monocryl. Dressing placed. Patient tolerated procedure well and sent to PACU in stable condition. All counts correct. Wound class is 3. LAURA BISHOP MD Apr 03, 2020 14:57
[2020-04-04] MEDS: IV RINGERS,LACTATED 1000ML 1,000 ML IV SCH ×3 (00:44→20:28)
[2020-04-04] MEDS: IV NORMAL SALINE 1000ML BAG 1,000 ML IV SCH ×5 (01:12→20:28)
[2020-04-04 03:00] VITALS: BP 122/61
[2020-04-04] MEDS ORDERED: FURO40TA4 PO (03:00)
[2020-04-04] MEDS ORDERED: SPIR25TA5 PO (03:00)
[2020-04-04] MEDS ORDERED: AMOX500C PO (03:00)
[2020-04-04 07:24] VITALS: BP 125/55
[2020-04-04 07:27] LABS: BASO % 0 % (0-3); EOS % 0 % (0-3); HEMATOCRIT 27.5 % (39.0-53.0); HEMOGLOBIN 9.8 g/dL (13.0-17.5); LYMPH # 0.8 x10^3/uL (1.0-4.8); LYMPH % 8 % (24-48); MEAN CORPUSCULAR HEMOGLOBIN 33 pg (25-35); MEAN CORPUSCULAR HGB CONC 36 g/dL (31-37); MEAN CORPUSCULAR VOLUME 92 fL (79-100); MONO # 0.6 x10^3/uL (0.0-1.1); MONO % 6 % (0-9); NEUT # 8.2 x10^3/uL (1.8-7.7); NEUT % 86 % (31-73); PLATELET COUNT 38 x10^3/uL (140-400); RED CELL DISTRIBUTION WIDTH 15.4 % (11.5-14.5); WHITE BLOOD COUNT 9.6 x10^3/uL (4.0-11.0)
[2020-04-04 07:33] LABS: CALCIUM 7.9 mg/dL (8.5-10.1); CREATININE 0.7 mg/dL (0.7-1.3); GFR 121.4; POTASSIUM 4.5 mmol/L (3.5-5.1)
[2020-04-04 10:28] VITALS: BP 125/53
--- NOTE | 2020-04-04 11:31 | PDOC ---
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 Patient reports history of alcoholic cirrhosis and 3 abdominal hernias. He reports that he noticed bruising and bulging of his bellybutton today that was abnormal for him. Patient states that the pain radiates to his groin and that he is unable to stand straight because the pain is so severe. Patient reports that he stopped drinking alcohol 9 months ago. He denies any abdominal bloating, confusion, nausea, vomiting, or diarrhea. The patient denies any recent heavy lifting or coughing he currently rates his pain a 10 out of 10 on the pain scale pain is worse if the area is touched, there are no alleviating factors. 04/04/2020 No acute events overnight. Patient status post umbilical hernia repair and small bowel resection. Abdominal binder in place. Pain is well controlled. Patient's chart, labs, images were reviewed and discussed with RN Vitals/I&O Vitals/I&O: Vital Signs Date Time Temp Pulse Resp B/P (MAP) Pulse Ox O2 Delivery O2 Flow Rate FiO2 04/04/20 10:28 98.8 81 20 125/53 (77) 94 Nasal Cannula 98.8 04/03/20 23:00 2.0 I & O 04/03/20 04/03/20 04/04/20 15:00 23:00 07:00 Intake Total 500 ml 200 ml 0 ml Output Total 50 ml 145 ml 900 ml Balance 450 ml 55 ml -900 ml Physical Exam Physical Exam: GEN: No apparent distress. Alert and oriented HEENT: Normal cephalic, atraumatic, external auditory canals are patent NECK: Supple, no JVD, no thyromegaly was noted LUNGS: Bilateral crackles HEART: RRR, S1, S2 present. Peripheral pulses intact, no obvious murmurs noted ABDOMEN: Abdominal binder in place. Minimal tenderness upon palpation. Dressings are clear dry and intact. NG tube suctioning clear bile fluid. EXTREMITIES: Without clubbing, cyanosis, or edema. Pedal pulses intact. Negative Homans sign General: Alert, Oriented X3, Cooperative, moderate distress, Other (obese) Abdomen: Other (umbilical mass, non reducible, TTP, purplish discoloration) Extremities: No clubbing, No cyanosis Skin: No rashes, No breakdown Labs Labs: Laboratory Tests Test 04/04/20 06:25 White Blood Count 9.6 x10^3/uL (4.0-11.0) Red Blood Count 3.00 x10^6/uL (4.30-5.70) Hemoglobin 9.8 g/dL (13.0-17.5) Hematocrit 27.5 % (39.0-53.0) Mean Corpuscular Volume 92 fL (79-100) Mean Corpuscular Hemoglobin 33 pg (25-35) Mean Corpuscular Hemoglobin Concent 36 g/dL (31-37) Red Cell Distribution Width 15.4 % (11.5-14.5) Platelet Count 38 x10^3/uL (140-400) Neutrophils (%) (Auto) 86 % (31-73) Lymphocytes (%) (Auto) 8 % (24-48) Monocytes (%) (Auto) 6 % (0-9) Eosinophils (%) (Auto) 0 % (0-3) Basophils (%) (Auto) 0 % (0-3) Neutrophils # (Auto) 8.2 x10^3/uL (1.8-7.7) Lymphocytes # (Auto) 0.8 x10^3/uL (1.0-4.8) Monocytes # (Auto) 0.6 x10^3/uL (0.0-1.1) Eosinophils # (Auto) 0.0 x10^3/uL (0.0-0.7) Basophils # (Auto) 0.0 x10^3/uL (0.0-0.2) Sodium Level 137 mmol/L (136-145) Potassium Level 4.5 mmol/L (3.5-5.1) Chloride Level 107 mmol/L (98-107) Carbon Dioxide Level 22 mmol/L (21-32) Anion Gap 8 (6-14) Blood Urea Nitrogen 20 mg/dL (8-26) Creatinine 0.7 mg/dL (0.7-1.3) Estimated GFR (Cockcroft-Gault) 121.4 Glucose Level 124 mg/dL (70-99) Calcium Level 7.9 mg/dL (8.5-10.1) Assessment and Plan Assessmemt and Plan Problems Medical Problems: (1) Incarcerated hernia Status: Acute (2) SBO (small bowel obstruction) Status: Acute (3) SOB (shortness of breath) Status: Acute Comment Review of Relevant I have reviewed the following items ronaldo (where applicable) has been applied. Medications: Current Medications Medications (Trade) Dose Ordered Sig/West Route PRN Reason Start Time Stop Time Status Last Admin Dose Admin Cefoxitin Sodium (Mefoxin) 2 gm 1X PREOP PRN IVP PRIOR TO PROCEDURE 04/03/20 12:45 04/03/20 12:54 Morphine Sulfate 30 ml @ 0 mls/hr CONT PRN PRN IV PER PROTOCOL 04/03/20 14:45 04/03/20 15:14 Justifications for Admission Other Justification LYNNE SMITH MD Apr 04, 2020 11:31
[2020-04-04 14:27] VITALS: BP 132/60
[2020-04-04 19:00] VITALS: BP 128/61
--- NOTE | 2020-04-04 19:46 | PDOC ---
SURGICAL PROGRESS NOTE DATE: 04/04/20 TIME: 19:43 Subjective Pt reports feeling better Vital Signs Vital Signs Date Time Temp Pulse Resp B/P (MAP) Pulse Ox O2 Delivery O2 Flow Rate FiO2 04/04/20 14:27 99.1 81 20 132/60 (84) 95 Nasal Cannula 99.1 04/03/20 23:00 2.0 I&O Intake and Output 04/04/20 07:00 Intake Total 700 ml Output Total 1095 ml Balance -395 ml Intake Oral 0 ml IV Total 700 ml Output Urine Total 1025 ml Estimated Blood Loss 70 ml General: Alert, Oriented X3, Cooperative, No acute distress Abdomen: Soft, No tenderness, Other (dressing intact) Labs Laboratory Tests Test 04/03/20 04:30 04/04/20 06:25 White Blood Count 6.3 x10^3/uL (4.0-11.0) 9.6 x10^3/uL (4.0-11.0) Red Blood Count 3.35 x10^6/uL (4.30-5.70) 3.00 x10^6/uL (4.30-5.70) Hemoglobin 10.7 g/dL (13.0-17.5) 9.8 g/dL (13.0-17.5) Hematocrit 30.8 % (39.0-53.0) 27.5 % (39.0-53.0) Mean Corpuscular Volume 92 fL (79-100) 92 fL (79-100) Mean Corpuscular Hemoglobin 32 pg (25-35) 33 pg (25-35) Mean Corpuscular Hemoglobin Concent 35 g/dL (31-37) 36 g/dL (31-37) Red Cell Distribution Width 15.9 % (11.5-14.5) 15.4 % (11.5-14.5) Platelet Count 40 x10^3/uL (140-400) 38 x10^3/uL (140-400) Neutrophils (%) (Auto) 77 % (31-73) 86 % (31-73) Lymphocytes (%) (Auto) 16 % (24-48) 8 % (24-48) Monocytes (%) (Auto) 6 % (0-9) 6 % (0-9) Eosinophils (%) (Auto) 1 % (0-3) 0 % (0-3) Basophils (%) (Auto) 0 % (0-3) 0 % (0-3) Neutrophils # (Auto) 4.8 x10^3/uL (1.8-7.7) 8.2 x10^3/uL (1.8-7.7) Lymphocytes # (Auto) 1.0 x10^3/uL (1.0-4.8) 0.8 x10^3/uL (1.0-4.8) Monocytes # (Auto) 0.4 x10^3/uL (0.0-1.1) 0.6 x10^3/uL (0.0-1.1) Eosinophils # (Auto) 0.1 x10^3/uL (0.0-0.7) 0.0 x10^3/uL (0.0-0.7) Basophils # (Auto) 0.0 x10^3/uL (0.0-0.2) 0.0 x10^3/uL (0.0-0.2) Sodium Level 138 mmol/L (136-145) 137 mmol/L (136-145) Potassium Level 4.2 mmol/L (3.5-5.1) 4.5 mmol/L (3.5-5.1) Chloride Level 107 mmol/L (98-107) 107 mmol/L (98-107) Carbon Dioxide Level 23 mmol/L (21-32) 22 mmol/L (21-32) Anion Gap 8 (6-14) 8 (6-14) Blood Urea Nitrogen 17 mg/dL (8-26) 20 mg/dL (8-26) Creatinine 0.6 mg/dL (0.7-1.3) 0.7 mg/dL (0.7-1.3) Estimated GFR (Cockcroft-Gault) 145.0 121.4 Glucose Level 97 mg/dL (70-99) 124 mg/dL (70-99) Calcium Level 8.3 mg/dL (8.5-10.1) 7.9 mg/dL (8.5-10.1) Laboratory Tests Test 04/04/20 06:25 White Blood Count 9.6 x10^3/uL (4.0-11.0) Red Blood Count 3.00 x10^6/uL (4.30-5.70) Hemoglobin 9.8 g/dL (13.0-17.5) Hematocrit 27.5 % (39.0-53.0) Mean Corpuscular Volume 92 fL (79-100) Mean Corpuscular Hemoglobin 33 pg (25-35) Mean Corpuscular Hemoglobin Concent 36 g/dL (31-37) Red Cell Distribution Width 15.4 % (11.5-14.5) Platelet Count 38 x10^3/uL (140-400) Neutrophils (%) (Auto) 86 % (31-73) Lymphocytes (%) (Auto) 8 % (24-48) Monocytes (%) (Auto) 6 % (0-9) Eosinophils (%) (Auto) 0 % (0-3) Basophils (%) (Auto) 0 % (0-3) Neutrophils # (Auto) 8.2 x10^3/uL (1.8-7.7) Lymphocytes # (Auto) 0.8 x10^3/uL (1.0-4.8) Monocytes # (Auto) 0.6 x10^3/uL (0.0-1.1) Eosinophils # (Auto) 0.0 x10^3/uL (0.0-0.7) Basophils # (Auto) 0.0 x10^3/uL (0.0-0.2) Sodium Level 137 mmol/L (136-145) Potassium Level 4.5 mmol/L (3.5-5.1) Chloride Level 107 mmol/L (98-107) Carbon Dioxide Level 22 mmol/L (21-32) Anion Gap 8 (6-14) Blood Urea Nitrogen 20 mg/dL (8-26) Creatinine 0.7 mg/dL (0.7-1.3) Estimated GFR (Cockcroft-Gault) 121.4 Glucose Level 124 mg/dL (70-99) Calcium Level 7.9 mg/dL (8.5-10.1) Problem List Problems Medical Problems: (1) Incarcerated hernia Status: Acute (2) SBO (small bowel obstruction) Status: Acute (3) SOB (shortness of breath) Status: Acute Assessment/Plan s/p umb hernia repair and small bowel resection cont NGT and bowel rest Justicifation of Admission Dx: Justifications for Admission: Justification of Admission Dx: Yes LAURA BISHOP MD Apr 04, 2020 19:46
[2020-04-04 23:00] VITALS: BP 132/59
[2020-04-05 03:00] VITALS: BP 131/62
[2020-04-05] MEDS: IV RINGERS,LACTATED 1000ML 1,000 ML IV SCH ×2 (06:11→15:14)
[2020-04-05] MEDS: IV NORMAL SALINE 1000ML BAG 1,000 ML IV SCH (06:11)
[2020-04-05 07:00] VITALS: BP 123/55
--- NOTE | 2020-04-05 09:57 | PDOC ---
SURGICAL PROGRESS NOTE DATE: 04/05/20 TIME: 09:56 Subjective some improvement in pain no flatus Vital Signs Vital Signs Date Time Temp Pulse Resp B/P (MAP) Pulse Ox O2 Delivery O2 Flow Rate FiO2 04/05/20 07:00 97.8 70 18 123/55 (77) 97 Nasal Cannula 2.0 97.8 I&O Intake and Output 04/05/20 07:00 Intake Total 1050 ml Output Total 3650 ml Balance -2600 ml Intake Oral 50 ml IV Total 1000 ml Output Urine Total 2250 ml Gastric Drainage Total 1400 ml General: Alert, Cooperative HEENT: Other (ng in place) Abdomen: Soft, Other (dressing in place) Labs Laboratory Tests Test 04/04/20 06:25 White Blood Count 9.6 x10^3/uL (4.0-11.0) Red Blood Count 3.00 x10^6/uL (4.30-5.70) Hemoglobin 9.8 g/dL (13.0-17.5) Hematocrit 27.5 % (39.0-53.0) Mean Corpuscular Volume 92 fL (79-100) Mean Corpuscular Hemoglobin 33 pg (25-35) Mean Corpuscular Hemoglobin Concent 36 g/dL (31-37) Red Cell Distribution Width 15.4 % (11.5-14.5) Platelet Count 38 x10^3/uL (140-400) Neutrophils (%) (Auto) 86 % (31-73) Lymphocytes (%) (Auto) 8 % (24-48) Monocytes (%) (Auto) 6 % (0-9) Eosinophils (%) (Auto) 0 % (0-3) Basophils (%) (Auto) 0 % (0-3) Neutrophils # (Auto) 8.2 x10^3/uL (1.8-7.7) Lymphocytes # (Auto) 0.8 x10^3/uL (1.0-4.8) Monocytes # (Auto) 0.6 x10^3/uL (0.0-1.1) Eosinophils # (Auto) 0.0 x10^3/uL (0.0-0.7) Basophils # (Auto) 0.0 x10^3/uL (0.0-0.2) Sodium Level 137 mmol/L (136-145) Potassium Level 4.5 mmol/L (3.5-5.1) Chloride Level 107 mmol/L (98-107) Carbon Dioxide Level 22 mmol/L (21-32) Anion Gap 8 (6-14) Blood Urea Nitrogen 20 mg/dL (8-26) Creatinine 0.7 mg/dL (0.7-1.3) Estimated GFR (Cockcroft-Gault) 121.4 Glucose Level 124 mg/dL (70-99) Calcium Level 7.9 mg/dL (8.5-10.1) Problem List Problems Medical Problems: (1) Incarcerated hernia Status: Acute (2) SBO (small bowel obstruction) Status: Acute (3) SOB (shortness of breath) Status: Acute Assessment/Plan await bowel function continue ng ambulate Justicifation of Admission Dx: Justifications for Admission: Justification of Admission Dx: Yes KASSIDY MONTEJO APRN Apr 05, 2020 09:57
--- NOTE | 2020-04-05 09:59 | NUR ---
SW following. Discussed with RN, pt from home, room air, NPO, COVID-19 negative. NG tube and bowel rest (awaiting bowel function). SW will continue to follow for any discharge planning needs.
[2020-04-05 10:24] LABS: CALCIUM 8.1 mg/dL (8.5-10.1); CREATININE 0.8 mg/dL (0.7-1.3); GFR 104.1; POTASSIUM 4.3 mmol/L (3.5-5.1)
[2020-04-05 10:30] LABS: ALBUMIN 2.3 g/dL (3.4-5.0); ALBUMIN/GLOBULIN RATIO 0.7 (1.0-1.7); TOTAL BILIRUBIN 5.5 mg/dL (0.2-1.0); TOTAL PROTEIN 5.7 g/dL (6.4-8.2)
[2020-04-05 11:00] VITALS: BP 126/56
--- NOTE | 2020-04-05 11:27 | PDOC ---
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 DW with case management. DW with RN. 44 year old male, accompanied by his , presents to the emergency department with complaints of dull abdominal pain around his umbilicus that began 6 days ago and became severe today. Patient reports history of alcoholic cirrhosis and 3 abdominal hernias. He reports that he noticed bruising and bulging of his bellybutton today that was abnormal for him. Patient states that the pain radiates to his groin and that he is unable to stand straight because the pain is so severe. Patient reports that he stopped drinking alcohol 9 months ago. He denies any abdominal bloating, confusion, nausea, vomiting, or diarrhea. The patient denies any recent heavy lifting or coughing he currently rates his pain a 10 out of 10 on the pain scale pain is worse if the area is touched, there are no alleviating factors. 04/04/2020 No acute events overnight. Patient status post umbilical hernia repair and small bowel resection. Abdominal binder in place. Pain is well controlled. Patient's chart, labs, images were reviewed and discussed with RN Vitals/I&O Vitals/I&O: Vital Signs Date Time Temp Pulse Resp B/P (MAP) Pulse Ox O2 Delivery O2 Flow Rate FiO2 04/05/20 11:00 97.8 74 18 126/56 (79) 95 Room Air 97.8 04/05/20 07:00 2.0 I & O 04/04/20 04/04/20 04/05/20 15:00 23:00 07:00 Intake Total 0 ml 1000 ml 50 ml Output Total 2300 ml 1350 ml Balance 0 ml -1300 ml -1300 ml Physical Exam Physical Exam: HEENT: Sclera icterus. General: Alert, Oriented X3, Cooperative, Other (NG to suction) Heart: Regular rate, No murmurs Lungs: Clear Abdomen: Soft, Other (Clean dry intact ventral dressing. ) Extremities: No clubbing, No cyanosis Skin: No rashes, No breakdown Labs Labs: Laboratory Tests Test 04/05/20 10:00 Sodium Level 136 mmol/L (136-145) Potassium Level 4.3 mmol/L (3.5-5.1) Chloride Level 106 mmol/L (98-107) Carbon Dioxide Level 24 mmol/L (21-32) Anion Gap 6 (6-14) Blood Urea Nitrogen 20 mg/dL (8-26) Creatinine 0.8 mg/dL (0.7-1.3) Estimated GFR (Cockcroft-Gault) 104.1 BUN/Creatinine Ratio 25 (6-20) Glucose Level 86 mg/dL (70-99) Calcium Level 8.1 mg/dL (8.5-10.1) Total Bilirubin 5.5 mg/dL (0.2-1.0) Aspartate Amino Transf (AST/SGOT) 27 U/L (15-37) Alanine Aminotransferase (ALT/SGPT) 28 U/L (16-63) Alkaline Phosphatase 105 U/L (46-116) Total Protein 5.7 g/dL (6.4-8.2) Albumin 2.3 g/dL (3.4-5.0) Albumin/Globulin Ratio 0.7 (1.0-1.7) Review of Systems Review of Systems: abdominal discomfort. nausea Assessment and Plan Assessmemt and Plan Problems Medical Problems: (1) Incarcerated hernia Status: Acute (2) SBO (small bowel obstruction) Status: Acute (3) SOB (shortness of breath) Status: Acute Consult GI, Bilirubin elevated at 5.5. Appreciate surgery recommendations IV pain control OOB TC PT OT Lovenox for DVT prophylaxis Protonix GI prophylaxis ADA diet Full code Discussed with RN and SW Surrogate decision maker is the Comment Review of Relevant I have reviewed the following items ronaldo (where applicable) has been applied. Justifications for Admission Other Justification NILO HALLMAN III DO Apr 05, 2020 11:27
--- NOTE | 2020-04-05 12:13 | PDOC2 ---
GI CONSULT Date of Service: DATE: 04/05/20 TIME: 12:13 Reason For Consult: elevated bilirubin, jaundice HPI: HPI: 44 y/o male admitted over the weekend, now s/p incarcerated umbilical hernia repair w/ small bowel resection by Dr. Beard. Says abdominal pain is better than before surgery. Still w/ NGT. CT noted cirrhosis and portal hypertension. He indicates a h/o liver disease related to alcohol - has been sober x 5 months and has plans to either see a specialist or get an ultrasound later this month as an outpt - can't tell me where. Reports h/o BLE swelling controlled w/ Lasix and Aldactone. No previous paracentesis. Says someone told him his liver could recover. Denies heartburn/reflux, dysphagia, n/v, diarrhea, constipation, hematemesis, hematochezia, melena, or weight loss. Notes reviewed - apparently some blood in NGT when first placed but none since. No GB, pancreas, or PUD history. No previous EGD or colonoscopy. Recently took atbx and Aleve for a sore tooth. PMH: PMH: denies other than per HPI FH: Family History: No pertinent hx (denies GI cancers and liver disease) Social History: Smoke: No ALCOHOL: heavy (quit 5 months ago) ROS: GEN: Denies fevers, chills, sweats HEENT: +tooth infection CV: Denies chest pain RESP: Denies shortness of air, cough GI: Per HPI : Denies hematuria, dysuria ENDO: Denies weight changes NEURO: Denies confusion, dizziness MSK: Denies weakness, joint pain/swelling SKIN: Denies jaundice, pruritus Vitals: Vitals: Vital Signs Date Time Temp Pulse Resp B/P (MAP) Pulse Ox O2 Delivery O2 Flow Rate FiO2 04/05/20 11:00 97.8 74 18 126/56 (79) 95 Room Air 97.8 04/05/20 07:00 2.0 Labs: Labs: Laboratory Tests Test 04/05/20 10:00 Sodium Level 136 mmol/L (136-145) Potassium Level 4.3 mmol/L (3.5-5.1) Chloride Level 106 mmol/L (98-107) Carbon Dioxide Level 24 mmol/L (21-32) Anion Gap 6 (6-14) Blood Urea Nitrogen 20 mg/dL (8-26) Creatinine 0.8 mg/dL (0.7-1.3) Estimated GFR (Cockcroft-Gault) 104.1 BUN/Creatinine Ratio 25 (6-20) Glucose Level 86 mg/dL (70-99) Calcium Level 8.1 mg/dL (8.5-10.1) Total Bilirubin 5.5 mg/dL (0.2-1.0) Aspartate Amino Transf (AST/SGOT) 27 U/L (15-37) Alanine Aminotransferase (ALT/SGPT) 28 U/L (16-63) Alkaline Phosphatase 105 U/L (46-116) Total Protein 5.7 g/dL (6.4-8.2) Albumin 2.3 g/dL (3.4-5.0) Albumin/Globulin Ratio 0.7 (1.0-1.7) Allergies: Coded Allergies: No Known Drug Allergies (Unverified , 04/02/20) Imaging: Imaging: CT A/P 04/02 IMPRESSION: 1. Umbilical hernia which contains a short segment of dilated small bowel with adjacent inflammatory changes. There is associated small bowel obstruction caused by this hernia. 2. Cirrhotic morphology of liver with secondary sequela of portal hypertension including trace intra-abdominal ascites, and intra-abdominal collateral vessels and massive splenomegaly. KUB 04/02 IMPRESSION: Only the upper abdomen is included in the [id number]. NG tube tip terminates over the body of the stomach. Moderate colonic stool content. PE: GEN: NAD HEENT: Atraumatic, PERRL LUNGS: CTAB HEART: RRR ABD: abd binder, NG bilious EXTREMITY: SCDs SKIN: No rashes, no jaundice NEURO/PSYCH: A & O 3 A/P: A/P: S/p incarcerated umbilical hernia repair w/ SBR Anemia, thrombocytopenia, coagulopathy, hyperbilirubinemia, low A/G ratio Cirrhosis/portal hypertension H/o alcohol overuse - sober x 5 months CRC screen - none Recent dental infection COVID negative 04/02 -- Continue per surgery. Check anemia parameters, viral Hep panel, and RUQ US for further evaluation of cirrhosis. Empiric acid-ruby on rails web developer. Resume diuretics as able. Encouraged continued abstinence. Outpt screening colonoscopy ideally w/ EGD as eval for varices. MONICO MONTANO Apr 05, 2020 12:13
[2020-04-05 15:00] VITALS: BP 121/52
[2020-04-05] MEDS: PANTOPRAZOLE IV PUSH 40 MG VIAL. IVP SCH (15:15)
--- NOTE | 2020-04-05 16:35 | RAD ---
EXAMINATION: RIGHT UPPER QUADRANT ULTRASOUND CLINICAL HISTORY: Cirrhosis TECHNIQUE: Sonography of the right upper quadrant was performed. COMPARISON: CT abdomen/pelvis 04/02/2020 FINDINGS: Pancreas: Not visualized secondary to prominent overlying bowel gas. Liver: - Echotexture: Coarse - Echogenicity: Normal - Surface contour: Smooth - Lesions: None. Biliary: No intrahepatic biliary duct dilation. - CBD: 5 mm. - Gallbladder: Normal caliber. - Contents: No cholelithiasis. - Wall: No abnormal thickening. - Other: No pericholecystic fluid. Right Kidney: Not visualized secondary to prominent overlying bowel gas.. Ascites: None. Other: Small right pleural effusion incidentally noted. IMPRESSION: No focal hepatic lesion visualized. Incidentally noted small right pleural effusion. Pancreas and right kidney not visualized. Electronically signed by: Gabe Sal DO (04/05/2020 4:32 PM) [id number]
[2020-04-05 19:00] VITALS: BP 133/57
[2020-04-05 23:00] VITALS: BP 124/57
[2020-04-06 03:00] VITALS: BP 112/53
[2020-04-06 07:00] VITALS: BP 115/52
--- NOTE | 2020-04-06 09:40 | PDOC ---
SURGICAL PROGRESS NOTE DATE: 04/06/20 TIME: 09:38 Subjective + flatus mild pain no nausea Vital Signs Vital Signs Date Time Temp Pulse Resp B/P (MAP) Pulse Ox O2 Delivery O2 Flow Rate FiO2 04/06/20 07:00 98.5 76 18 115/52 (73) 97 Room Air 98.5 04/05/20 07:00 2.0 I&O Intake and Output 04/06/20 07:00 Output Total 4900 ml Balance -4900 ml Output Urine Total 3300 ml Gastric Drainage Total 1600 ml General: Alert, Oriented X3, Cooperative HEENT: Other (ng in place) Abdomen: Soft, Other (dressing dry) Labs Laboratory Tests Test 04/05/20 10:00 Sodium Level 136 mmol/L (136-145) Potassium Level 4.3 mmol/L (3.5-5.1) Chloride Level 106 mmol/L (98-107) Carbon Dioxide Level 24 mmol/L (21-32) Anion Gap 6 (6-14) Blood Urea Nitrogen 20 mg/dL (8-26) Creatinine 0.8 mg/dL (0.7-1.3) Estimated GFR (Cockcroft-Gault) 104.1 BUN/Creatinine Ratio 25 (6-20) Glucose Level 86 mg/dL (70-99) Calcium Level 8.1 mg/dL (8.5-10.1) Iron Level 97 ug/dL (65-175) Total Iron Binding Capacity 318 ug/dL (250-450) Iron Saturation 31 % (15-34) Total Bilirubin 5.5 mg/dL (0.2-1.0) Aspartate Amino Transf (AST/SGOT) 27 U/L (15-37) Alanine Aminotransferase (ALT/SGPT) 28 U/L (16-63) Alkaline Phosphatase 105 U/L (46-116) Total Protein 5.7 g/dL (6.4-8.2) Albumin 2.3 g/dL (3.4-5.0) Albumin/Globulin Ratio 0.7 (1.0-1.7) Vitamin B12 Level 904 pg/mL (247-911) Hepatitis A IgM Antibody Nonreactive (Nonreactive) Hepatitis B Surface Antigen Nonreactive (Nonreactive) Hepatitis B Core IgM Antibody Nonreactive (Nonreactive) Hepatitis C IgG Antibody Nonreactive (Nonreactive) Laboratory Tests Test 04/05/20 10:00 Sodium Level 136 mmol/L (136-145) Potassium Level 4.3 mmol/L (3.5-5.1) Chloride Level 106 mmol/L (98-107) Carbon Dioxide Level 24 mmol/L (21-32) Anion Gap 6 (6-14) Blood Urea Nitrogen 20 mg/dL (8-26) Creatinine 0.8 mg/dL (0.7-1.3) Estimated GFR (Cockcroft-Gault) 104.1 BUN/Creatinine Ratio 25 (6-20) Glucose Level 86 mg/dL (70-99) Calcium Level 8.1 mg/dL (8.5-10.1) Iron Level 97 ug/dL (65-175) Total Iron Binding Capacity 318 ug/dL (250-450) Iron Saturation 31 % (15-34) Total Bilirubin 5.5 mg/dL (0.2-1.0) Aspartate Amino Transf (AST/SGOT) 27 U/L (15-37) Alanine Aminotransferase (ALT/SGPT) 28 U/L (16-63) Alkaline Phosphatase 105 U/L (46-116) Total Protein 5.7 g/dL (6.4-8.2) Albumin 2.3 g/dL (3.4-5.0) Albumin/Globulin Ratio 0.7 (1.0-1.7) Vitamin B12 Level 904 pg/mL (247-911) Hepatitis A IgM Antibody Nonreactive (Nonreactive) Hepatitis B Surface Antigen Nonreactive (Nonreactive) Hepatitis B Core IgM Antibody Nonreactive (Nonreactive) Hepatitis C IgG Antibody Nonreactive (Nonreactive) Problem List Problems Medical Problems: (1) Incarcerated hernia Status: Acute (2) SBO (small bowel obstruction) Status: Acute (3) SOB (shortness of breath) Status: Acute Assessment/Plan s/p SBR, umbo hernia repair will clamp NG Justicifation of Admission Dx: Justifications for Admission: Justification of Admission Dx: Yes KASSIDY MONTEJO JOINT CUTTER Apr 06, 2020 09:40
--- NOTE | 2020-04-06 09:52 | PDOC ---
Date of Service: DATE: 04/06/20 TIME: 09:48 Subjective: Subjective: Feels better. Passed gas, thinks maybe will pass stool later. Objective: Objective: Reviewed chart - plans to clamp NGT. Vital Signs: Vital Signs Date Time Temp Pulse Resp B/P (MAP) Pulse Ox O2 Delivery O2 Flow Rate FiO2 04/06/20 07:00 98.5 76 18 115/52 (73) 97 Room Air 98.5 04/05/20 07:00 2.0 Labs: Laboratory Tests Test 04/05/20 10:00 Sodium Level 136 mmol/L Potassium Level 4.3 mmol/L Chloride Level 106 mmol/L Carbon Dioxide Level 24 mmol/L Anion Gap 6 Blood Urea Nitrogen 20 mg/dL Creatinine 0.8 mg/dL Estimated GFR (Cockcroft-Gault) 104.1 BUN/Creatinine Ratio 25 Glucose Level 86 mg/dL Calcium Level 8.1 mg/dL Iron Level 97 ug/dL Total Iron Binding Capacity 318 ug/dL Iron Saturation 31 % Total Bilirubin 5.5 mg/dL Aspartate Amino Transf (AST/SGOT) 27 U/L Alanine Aminotransferase (ALT/SGPT) 28 U/L Alkaline Phosphatase 105 U/L Total Protein 5.7 g/dL Albumin 2.3 g/dL Albumin/Globulin Ratio 0.7 Vitamin B12 Level 904 pg/mL Hepatitis A IgM Antibody Nonreactive Hepatitis B Surface Antigen Nonreactive Hepatitis B Core IgM Antibody Nonreactive Hepatitis C IgG Antibody Nonreactive Imaging: RUQ US 04/05 FINDINGS: Pancreas: Not visualized secondary to prominent overlying bowel gas. Liver: - Echotexture: Coarse - Echogenicity: Normal - Surface contour: Smooth - Lesions: None. Biliary: No intrahepatic biliary duct dilation. - CBD: 5 mm. - Gallbladder: Normal caliber. - Contents: No cholelithiasis. - Wall: No abnormal thickening. - Other: No pericholecystic fluid. Right Kidney: Not visualized secondary to prominent overlying bowel gas.. Ascites: None. Other: Small right pleural effusion incidentally noted. IMPRESSION: No focal hepatic lesion visualized. Incidentally noted small right pleural effusion. Pancreas and right kidney not visualized. PE: GEN: NAD LUNGS: CTAB HEART: RRR ABD: NABS, S/ND/NT NEURO/PSYCH: A & O 3 A/P: S/p incarcerated umbilical hernia repair w/ SBR Alcoholic cirrhosis -- Continue per surgery. Will order recheck of labs for a.m. Justicifation of Admission Dx: Justifications for Admission: Justification of Admission Dx: Yes MONICO MONTANO Apr 06, 2020 09:52
--- NOTE | 2020-04-06 09:55 | NUR ---
SW following. 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 Pt has an NG tube. SW will continue to follow for any discharge planning needs.
[2020-04-06] MEDS: PANTOPRAZOLE IV PUSH 40 MG VIAL. IVP SCH (10:03)
[2020-04-06 11:00] VITALS: BP 123/51
--- NOTE | 2020-04-06 12:42 | PDOC ---
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 CHRISTIAN with case management. CHRISTIAN with RN. 44 year old male, accompanied by his , presents to the emergency department with complaints of dull abdominal pain around his umbilicus that began 6 days ago and became severe today. Patient reports history of alcoholic cirrhosis and 3 abdominal hernias. He reports that he noticed bruising and bulging of his bellybutton today that was abnormal for him. Patient states that the pain radiates to his groin and that he is unable to stand straight because the pain is so severe. Patient reports that he stopped drinking alcohol 9 months ago. He denies any abdominal bloating, confusion, nausea, vomiting, or diarrhea. The patient denies any recent heavy lifting or coughing he currently rates his pain a 10 out of 10 on the pain scale pain is worse if the area is t ouched, there are no alleviating factors. 04/04/2020 No acute events overnight. Patient status post umbilical hernia repair and small bowel resection. Abdominal binder in place. Pain is well controlled. Patient's chart, labs, images were reviewed and discussed with RN Vitals/I&O Vitals/I&O: Vital Signs Date Time Temp Pulse Resp B/P (MAP) Pulse Ox O2 Delivery O2 Flow Rate FiO2 04/06/20 11:00 97.9 78 18 123/51 (75) 95 Room Air 97.9 04/05/20 07:00 2.0 I & O 04/05/20 04/05/20 04/06/20 15:00 23:00 07:00 Output Total 2200 ml 2700 ml Balance -2200 ml -2700 ml Physical Exam Physical Exam: HEENT: Sclera icterus. General: Alert, Oriented X3, Cooperative Heart: Regular rate, No murmurs Lungs: Clear Abdomen: Soft, Other (dressing dry and clean) Extremities: No clubbing, No cyanosis Skin: No rashes, No breakdown Review of Systems Review of Systems: NO N/V NO dizziness Assessment and Plan Assessmemt and Plan Problems Medical Problems: (1) Incarcerated hernia Status: Acute (2) SBO (small bowel obstruction) Status: Acute Plan: 1) Order CMP 2) Wound care 3) IV fluids 4) Appreciate supspecialty input 5) DVT prophylaxis 6) Home meds 7) full code Comment Review of Relevant I have reviewed the following items ronaldo (where applicable) has been applied. Medications: Current Medications Medications (Trade) Dose Ordered Sig/West Route PRN Reason Start Time Stop Time Status Last Admin Dose Admin Pantoprazole Sodium (PROTONIX VIAL for IV PUSH) 40 mg DAILYAC IVP 04/05/20 16:30 04/06/20 10:03 Justifications for Admission Other Justification NILO HALLMAN III DO Apr 06, 2020 12:42
[2020-04-06] MEDS: IV RINGERS,LACTATED 1000ML 1,000 ML IV SCH ×2 (12:44→22:44)
[2020-04-06 15:00] VITALS: BP 131/55
[2020-04-06] MEDS: IV NORMAL SALINE 1000ML BAG 1,000 ML IV SCH (16:20)
--- NOTE | 2020-04-06 17:07 | PATHOLOGY ---
[facility] Accession Number: [id number] . 01 Material submitted: . PART A: small bowel - SMALL BOWEL PART B: hernia - HERNIA SAC . 01 Clinical history: . INCCARERATED UMBILICAL HERNIA UMBILICAL HERNIA REPAIR POSSIBLE BOWEL RESTRUCTION . 02 Diagnosis: A. Small bowel, segmental resection: - Hemorrhagic infarct. - Margins of resection viable. . B. Segment of fibromembranous and fibroadipose tissue, umbilical hernia repair: - Hernia sac showing congestion, focal recent hemorrhage, and focal acute inflammation. (JPM/db; 04/06/2020) LBQ 04/06/2020 1635 Local . 02 Electronically signed: . Yovani Hogan MD, Pathologist NPI- [id number] . 01 Gross description: . A. The specimen is received in formalin, labeled "Tye Chan, small bowel". Received is an unoriented loop segment of small bowel measuring 13.8 cm in length by 2.8 cm in diameter. There is one stapled margin present. The serosal surface is pink-freeman to dusky freeman-brown and the attached mesenteric fat measures up to 2.5 cm in thickness. The specimen is opened along the antimesenteric line to reveal light jack mucosa with normal architectural folds near the stapled margin. The remainder of the mucosa is red-brown and granular in appearance with moderate architectural folds. The specimen is submitted representatively as follows: . A1-A2 malt liquors sales representative sections from either side of stapled margin A3-A4 malt liquors sales representative cross-sections of small bowel. . B. The specimen is received in formalin, labeled "Tye Chan, hernia sac". Received is a segment of fibromembranous tissue measuring 10.8 x 2.5 x 1.4 cm in greatest dimensions. No distinct nodules or lesions are noted grossly. The specimen is submitted representatively in cassette B1. (CAA; 04/05/2020) QAC/QAC 04/06/2020 1443 Local . 02 Pathologist provided ICD-10: K55.069, K42.9 . 02 CPT . 038441, [id number] Specimen Comment: A courtesy copy of this report has been sent to [phone] Specimen Comment: Report sent to Performed at: [address], [place] [id number] MD Scar Munroe MD Phone: [phone] Performed at: 02 [facility] [address] [place] [id number] MD Yovani Hogan MD Phone: [phone]
[2020-04-06 19:00] VITALS: BP 132/62
[2020-04-06 23:00] VITALS: BP 142/61
[2020-04-07 03:00] VITALS: BP 134/60
[2020-04-07 05:45] LABS: PROTHROMBIN TIME PATIENT 20.7 SEC (11.7-14.0)
[2020-04-07 05:49] LABS: HEMATOCRIT 28.4 % (39.0-53.0); HEMOGLOBIN 10.2 g/dL (13.0-17.5); RED BLOOD COUNT 3.1 x10^6/uL (4.30-5.70); RED CELL DISTRIBUTION WIDTH 15.3 % (11.5-14.5); WHITE BLOOD COUNT 6.3 x10^3/uL (4.0-11.0)
[2020-04-07] MEDS: IV RINGERS,LACTATED 1000ML 1,000 ML IV SCH ×2 (06:22→18:44)
[2020-04-07] MEDS: PANTOPRAZOLE IV PUSH 40 MG VIAL. IVP SCH (06:22)
[2020-04-07 06:24] LABS: ALBUMIN 2.2 g/dL (3.4-5.0); ALBUMIN/GLOBULIN RATIO 0.8 (1.0-1.7); CALCIUM 7.9 mg/dL (8.5-10.1); CREATININE 0.6 mg/dL (0.7-1.3); POTASSIUM 3.8 mmol/L (3.5-5.1); TOTAL BILIRUBIN 6.7 mg/dL (0.2-1.0)
[2020-04-07 07:00] VITALS: BP 132/55
--- NOTE | 2020-04-07 09:11 | PDOC ---
SURGICAL PROGRESS NOTE DATE: 04/07/20 TIME: 09:08 Subjective resting pain managed taking liquids + flatus Vital Signs Vital Signs Date Time Temp Pulse Resp B/P (MAP) Pulse Ox O2 Delivery O2 Flow Rate FiO2 04/07/20 07:00 98.8 71 18 132/55 (80) 98 Room Air 98.8 I&O Intake and Output 04/07/20 07:00 Intake Total 0 ml Output Total 575 ml Balance -575 ml Intake Oral 0 ml Output Urine Total 575 ml General: Alert, Oriented X3, Cooperative Abdomen: Soft, Other (dressing dry) Labs Laboratory Tests Test 04/05/20 10:00 04/07/20 04:00 Sodium Level 136 mmol/L (136-145) 136 mmol/L (136-145) Potassium Level 4.3 mmol/L (3.5-5.1) 3.8 mmol/L (3.5-5.1) Chloride Level 106 mmol/L (98-107) 106 mmol/L (98-107) Carbon Dioxide Level 24 mmol/L (21-32) 22 mmol/L (21-32) Anion Gap 6 (6-14) 8 (6-14) Blood Urea Nitrogen 20 mg/dL (8-26) 19 mg/dL (8-26) Creatinine 0.8 mg/dL (0.7-1.3) 0.6 mg/dL (0.7-1.3) Estimated GFR (Cockcroft-Gault) 104.1 145.0 BUN/Creatinine Ratio 25 (6-20) 32 (6-20) Glucose Level 86 mg/dL (70-99) 79 mg/dL (70-99) Calcium Level 8.1 mg/dL (8.5-10.1) 7.9 mg/dL (8.5-10.1) Iron Level 97 ug/dL (65-175) Total Iron Binding Capacity 318 ug/dL (250-450) Iron Saturation 31 % (15-34) Total Bilirubin 5.5 mg/dL (0.2-1.0) 6.7 mg/dL (0.2-1.0) Aspartate Amino Transf (AST/SGOT) 27 U/L (15-37) 25 U/L (15-37) Alanine Aminotransferase (ALT/SGPT) 28 U/L (16-63) 26 U/L (16-63) Alkaline Phosphatase 105 U/L (46-116) 90 U/L (46-116) Total Protein 5.7 g/dL (6.4-8.2) 5.0 g/dL (6.4-8.2) Albumin 2.3 g/dL (3.4-5.0) 2.2 g/dL (3.4-5.0) Albumin/Globulin Ratio 0.7 (1.0-1.7) 0.8 (1.0-1.7) Vitamin B12 Level 904 pg/mL (247-911) Hepatitis A IgM Antibody Nonreactive (Nonreactive) Hepatitis B Surface Antigen Nonreactive (Nonreactive) Hepatitis B Core IgM Antibody Nonreactive (Nonreactive) Hepatitis C IgG Antibody Nonreactive (Nonreactive) White Blood Count 6.3 x10^3/uL (4.0-11.0) Red Blood Count 3.10 x10^6/uL (4.30-5.70) Hemoglobin 10.2 g/dL (13.0-17.5) Hematocrit 28.4 % (39.0-53.0) Mean Corpuscular Volume 92 fL (79-100) Mean Corpuscular Hemoglobin 33 pg (25-35) Mean Corpuscular Hemoglobin Concent 36 g/dL (31-37) Red Cell Distribution Width 15.3 % (11.5-14.5) Platelet Count 30 x10^3/uL (140-400) Prothrombin Time 20.7 SEC (11.7-14.0) Prothromb Time International Ratio 1.8 (0.8-1.1) Laboratory Tests Test 04/07/20 04:00 White Blood Count 6.3 x10^3/uL (4.0-11.0) Red Blood Count 3.10 x10^6/uL (4.30-5.70) Hemoglobin 10.2 g/dL (13.0-17.5) Hematocrit 28.4 % (39.0-53.0) Mean Corpuscular Volume 92 fL (79-100) Mean Corpuscular Hemoglobin 33 pg (25-35) Mean Corpuscular Hemoglobin Concent 36 g/dL (31-37) Red Cell Distribution Width 15.3 % (11.5-14.5) Platelet Count 30 x10^3/uL (140-400) Prothrombin Time 20.7 SEC (11.7-14.0) Prothromb Time International Ratio 1.8 (0.8-1.1) Sodium Level 136 mmol/L (136-145) Potassium Level 3.8 mmol/L (3.5-5.1) Chloride Level 106 mmol/L (98-107) Carbon Dioxide Level 22 mmol/L (21-32) Anion Gap 8 (6-14) Blood Urea Nitrogen 19 mg/dL (8-26) Creatinine 0.6 mg/dL (0.7-1.3) Estimated GFR (Cockcroft-Gault) 145.0 BUN/Creatinine Ratio 32 (6-20) Glucose Level 79 mg/dL (70-99) Calcium Level 7.9 mg/dL (8.5-10.1) Total Bilirubin 6.7 mg/dL (0.2-1.0) Aspartate Amino Transf (AST/SGOT) 25 U/L (15-37) Alanine Aminotransferase (ALT/SGPT) 26 U/L (16-63) Alkaline Phosphatase 90 U/L (46-116) Total Protein 5.0 g/dL (6.4-8.2) Albumin 2.2 g/dL (3.4-5.0) Albumin/Globulin Ratio 0.8 (1.0-1.7) Problem List Problems Medical Problems: (1) Incarcerated hernia Status: Acute (2) SBO (small bowel obstruction) Status: Acute (3) SOB (shortness of breath) Status: Acute Assessment/Plan advance diet dc digital photographic printer Justicifation of Admission Dx: Justifications for Admission: Justification of Admission Dx: Yes KASSIDY MONTEJO SHAMPOO TECHNICIAN Apr 07, 2020 09:11
--- NOTE | 2020-04-07 10:19 | NUR ---
SW following. Discussed with RN, pt now on clear liquid diet, still has COMMERCIAL COLLECTIONS DRIVER, no longer has NG tube. Pt will return home at discharge. SW will continue to follow.
[2020-04-07 11:00] VITALS: BP 121/57
--- NOTE | 2020-04-07 12:01 | PDOC ---
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 Patient is sitting up at bedside chair. Patient stated his surgeon told him of possible liver transplant in the future. Discussed with patient spouse about possible need for liver transplant. Discussed with RN. 04/06/2020 Pt seen and examined in room Pt stated he quit drinking 5 months ago DW therapeutic case manager CHRISTIAN RN 04/05/2020 Pt seen and examined. DW with case management. DW with RN. 44 year old male, accompanied by his , presents to the emergency department with complaints of dull abdominal pain around his umbilicus that began 6 days ago and became severe today. Patient reports history of alcoholic cirrhosis and 3 abdominal hernias. He reports that he noticed bruising and bulging of his bellybutton today that was abnormal for him. Patient states that the pain radiates to his groin and that he is unable to stand straight because the pain is so severe. Patient reports that he stopped drinking alcohol 9 months ago. He denies any abdominal bloating, confusion, nausea, vomiting, or diarrhea. The patient denies any recent heavy lifting or coughing he currently rates his pain a 10 out of 10 on the pain scale pain is worse if the area is touched, there are no alleviating factors. 04/04/2020 No acute events overnight. Patient status post umbilical hernia repair and small bowel resection. Abdominal binder in place. Pain is well controlled. Patient's chart, labs, images were reviewed and discussed with RN Vitals/I&O Vitals/I&O: Vital Signs Date Time Temp Pulse Resp B/P (MAP) Pulse Ox O2 Delivery O2 Flow Rate FiO2 04/07/20 11:00 98.2 81 18 121/57 (78) 98 Room Air 98.2 I & O 04/06/20 04/06/20 04/07/20 15:00 23:00 07:00 Intake Total 0 ml 0 ml Output Total 575 ml Balance 0 ml 0 ml -575 ml Physical Exam Physical Exam: HEENT: Sclera icterus. General: Alert, Oriented X3, Cooperative Heart: Regular rate, No murmurs Lungs: Clear Abdomen: Soft, Other (dressing dry) Extremities: No clubbing, No cyanosis Skin: No rashes, No breakdown Labs Labs: Laboratory Tests Test 04/07/20 04:00 White Blood Count 6.3 x10^3/uL (4.0-11.0) Red Blood Count 3.10 x10^6/uL (4.30-5.70) Hemoglobin 10.2 g/dL (13.0-17.5) Hematocrit 28.4 % (39.0-53.0) Mean Corpuscular Volume 92 fL (79-100) Mean Corpuscular Hemoglobin 33 pg (25-35) Mean Corpuscular Hemoglobin Concent 36 g/dL (31-37) Red Cell Distribution Width 15.3 % (11.5-14.5) Platelet Count 30 x10^3/uL (140-400) Prothrombin Time 20.7 SEC (11.7-14.0) Prothromb Time International Ratio 1.8 (0.8-1.1) Sodium Level 136 mmol/L (136-145) Potassium Level 3.8 mmol/L (3.5-5.1) Chloride Level 106 mmol/L (98-107) Carbon Dioxide Level 22 mmol/L (21-32) Anion Gap 8 (6-14) Blood Urea Nitrogen 19 mg/dL (8-26) Creatinine 0.6 mg/dL (0.7-1.3) Estimated GFR (Cockcroft-Gault) 145.0 BUN/Creatinine Ratio 32 (6-20) Glucose Level 79 mg/dL (70-99) Calcium Level 7.9 mg/dL (8.5-10.1) Total Bilirubin 6.7 mg/dL (0.2-1.0) Aspartate Amino Transf (AST/SGOT) 25 U/L (15-37) Alanine Aminotransferase (ALT/SGPT) 26 U/L (16-63) Alkaline Phosphatase 90 U/L (46-116) Total Protein 5.0 g/dL (6.4-8.2) Albumin 2.2 g/dL (3.4-5.0) Albumin/Globulin Ratio 0.8 (1.0-1.7) Review of Systems Review of Systems: Kaylyn Johnson/V. Denies dizziness. Assessment and Plan Assessmemt and Plan Problems Medical Problems: (1) Incarcerated hernia Status: Acute (2) SBO (small bowel obstruction) Status: Acute (3) SOB (shortness of breath) Status: Acute Assessment: Acute abdominal pain due to incarcerated umbilical hernia status post umbilical hernia repair and small bowel resection 04/04/2020. Normocytic anemia likely due to chronic liver disease. 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 Coagulopathy due to liver disease. Severe protein malnutrition. EtOH cirrhosis MELD 18. Plan: Continue wound care. Continue IV fluids. Continue home meds. DVT prophylaxis. Consult PT, OT. Subspecialty input appreciated. Full code. Comment Review of Relevant I have reviewed the following items ronaldo (where applicable) has been applied. Justifications for Admission Other Justification NILO HALLMAN III DO Apr 07, 2020 12:01
--- NOTE | 2020-04-07 12:23 | PDOC ---
Date of Service: DATE: 04/07/20 TIME: 12:18 Subjective: Subjective: Many questions re: liver transplant, etc. after talked w/ hospitalist. Objective: Objective: No GI concerns per nursing, says Dr. Alas talked w/ him about liver disease and life expectancy. Vital Signs: Vital Signs Date Time Temp Pulse Resp B/P (MAP) Pulse Ox O2 Delivery O2 Flow Rate FiO2 04/07/20 11:00 98.2 81 18 121/57 (78) 98 Room Air 98.2 Labs: Laboratory Tests Test 04/07/20 04:00 White Blood Count 6.3 x10^3/uL Red Blood Count 3.10 x10^6/uL Hemoglobin 10.2 g/dL Hematocrit 28.4 % Mean Corpuscular Volume 92 fL Mean Corpuscular Hemoglobin 33 pg Mean Corpuscular Hemoglobin Concent 36 g/dL Red Cell Distribution Width 15.3 % Platelet Count 30 x10^3/uL Prothrombin Time 20.7 SEC Prothromb Time International Ratio 1.8 Sodium Level 136 mmol/L Potassium Level 3.8 mmol/L Chloride Level 106 mmol/L Carbon Dioxide Level 22 mmol/L Anion Gap 8 Blood Urea Nitrogen 19 mg/dL Creatinine 0.6 mg/dL Estimated GFR (Cockcroft-Gault) 145.0 BUN/Creatinine Ratio 32 Glucose Level 79 mg/dL Calcium Level 7.9 mg/dL Total Bilirubin 6.7 mg/dL Aspartate Amino Transf (AST/SGOT) 25 U/L Alanine Aminotransferase (ALT/SGPT) 26 U/L Alkaline Phosphatase 90 U/L Total Protein 5.0 g/dL Albumin 2.2 g/dL Albumin/Globulin Ratio 0.8 PE: GEN: NAD - looks better - up to chair, just had full liquids, NG out LUNGS: CTAB HEART: RRR ABD: soft NEURO/PSYCH: A & O 3 A/P: S/p incarcerated umbilical hernia repair w/ SBR Alcoholic cirrhosis w/ thrombocytopenia, coagulopathy, hyperbilirubinemia -- Continue per surgery. Can resume home diuretics. Discussed establishing care w/ real estate account executive @ . Justicifation of Admission Dx: Justifications for Admission: Justification of Admission Dx: Yes MONICO MONTANO Apr 07, 2020 12:23
[2020-04-07] MEDS: SPIRONOLACTONE 25 MG TABLET PO SCH (13:45)
[2020-04-07] MEDS: IV NORMAL SALINE 1000ML BAG 1,000 ML IV SCH (14:44)
[2020-04-07 15:00] VITALS: BP 130/53
[2020-04-07] MEDS: PANTOPRAZOLE 40 MG TABLET.DR. PO SCH (16:40)
[2020-04-07] MEDS: HYDROcodone/APAP 5/325MG 1 TAB TABLET PO PRN (17:40)
[2020-04-07 19:00] VITALS: BP 139/56
[2020-04-07 23:00] VITALS: BP 126/57
[2020-04-08 03:00] VITALS: BP 133/55
[2020-04-08] MEDS: IV RINGERS,LACTATED 1000ML 1,000 ML IV SCH ×3 (04:07→21:52)
[2020-04-08] MEDS: HYDROcodone/APAP 5/325MG 1 TAB TABLET PO PRN ×3 (04:11→21:50)
[2020-04-08] MEDS: PANTOPRAZOLE 40 MG TABLET.DR. PO SCH (05:47)
[2020-04-08 07:00] VITALS: BP 112/50
[2020-04-08] MEDS: SPIRONOLACTONE 25 MG TABLET PO SCH (09:28)
--- NOTE | 2020-04-08 09:55 | NUR ---
SW following. Discussed with RN, pt on full liquid diet. RN anticipates discharge home tomorrow. RN advised no SW needs at this time. SW will continue to follow.
[2020-04-08 11:00] VITALS: BP 136/70
--- NOTE | 2020-04-08 11:03 | PDOC ---
SURGICAL PROGRESS NOTE DATE: 04/08/20 TIME: 10:57 Subjective doing pretty well no nausea + flatus tolerating diet Vital Signs Vital Signs Date Time Temp Pulse Resp B/P (MAP) Pulse Ox O2 Delivery O2 Flow Rate FiO2 04/08/20 08:00 Room Air 04/08/20 07:00 98.1 71 17 112/50 (70) 98 98.1 I&O Intake and Output 04/08/20 07:00 Intake Total 3850 ml Output Total 1875 ml Balance 1975 ml Intake Oral 850 ml IV Total 3000 ml Output Urine Total 1875 ml General: Alert, Oriented X3, Cooperative Abdomen: Soft, No tenderness Labs Laboratory Tests Test 04/07/20 04:00 White Blood Count 6.3 x10^3/uL (4.0-11.0) Red Blood Count 3.10 x10^6/uL (4.30-5.70) Hemoglobin 10.2 g/dL (13.0-17.5) Hematocrit 28.4 % (39.0-53.0) Mean Corpuscular Volume 92 fL (79-100) Mean Corpuscular Hemoglobin 33 pg (25-35) Mean Corpuscular Hemoglobin Concent 36 g/dL (31-37) Red Cell Distribution Width 15.3 % (11.5-14.5) Platelet Count 30 x10^3/uL (140-400) Prothrombin Time 20.7 SEC (11.7-14.0) Prothromb Time International Ratio 1.8 (0.8-1.1) Sodium Level 136 mmol/L (136-145) Potassium Level 3.8 mmol/L (3.5-5.1) Chloride Level 106 mmol/L (98-107) Carbon Dioxide Level 22 mmol/L (21-32) Anion Gap 8 (6-14) Blood Urea Nitrogen 19 mg/dL (8-26) Creatinine 0.6 mg/dL (0.7-1.3) Estimated GFR (Cockcroft-Gault) 145.0 BUN/Creatinine Ratio 32 (6-20) Glucose Level 79 mg/dL (70-99) Calcium Level 7.9 mg/dL (8.5-10.1) Total Bilirubin 6.7 mg/dL (0.2-1.0) Aspartate Amino Transf (AST/SGOT) 25 U/L (15-37) Alanine Aminotransferase (ALT/SGPT) 26 U/L (16-63) Alkaline Phosphatase 90 U/L (46-116) Total Protein 5.0 g/dL (6.4-8.2) Albumin 2.2 g/dL (3.4-5.0) Albumin/Globulin Ratio 0.8 (1.0-1.7) Problem List Problems Medical Problems: (1) Incarcerated hernia Status: Acute (2) SBO (small bowel obstruction) Status: Acute (3) SOB (shortness of breath) Status: Acute Assessment/Plan advance diet Justicifation of Admission Dx: Justifications for Admission: Justification of Admission Dx: Yes KASSIDY MONTEJO LEAN FACILITATOR Apr 08, 2020 11:03
--- NOTE | 2020-04-08 12:36 | PDOC ---
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 Patient is sitting up at bedside chair. Patient stated his surgeon told him of possible liver transplant in the future. Discussed with patient spouse about possible need for liver transplant. Discussed with RN. 04/06/2020 Pt seen and examined in room Pt stated he quit drinking 5 months ago CHRISTIAN showcase trimmer CHRISTIAN RN 04/05/2020 Pt seen and examined. DW with case management. DW with RN. 44 year old male, accompanied by his , presents to the emergency department with complaints of dull abdominal pain around his umbilicus that began 6 days ago and became severe today. Patient reports history of alcoholic cirrhosis and 3 abdominal hernias. He reports that he noticed bruising and bulging of his bellybutton today that was abnormal for him. Patient states that the pain radiates to his groin and that he is unable to stand straight because the pain is so severe. Patient reports that he stopped drinking alcohol 9 month s ago. He denies any abdominal bloating, confusion, nausea, vomiting, or diarrhea. The patient denies any recent heavy lifting or coughing he currently rates his pain a 10 out of 10 on the pain scale pain is worse if the area is touched, there are no alleviating factors. 04/04/2020 No acute events overnight. Patient status post umbilical hernia repair and small bowel resection. Abdominal binder in place. Pain is well controlled. Patient's chart, labs, images were reviewed and discussed with RN Vitals/I&O Vitals/I&O: Vital Signs Date Time Temp Pulse Resp B/P (MAP) Pulse Ox O2 Delivery O2 Flow Rate FiO2 04/08/20 11:00 97.9 79 18 136/70 (92) 98 Room Air 97.9 I & O 04/07/20 04/07/20 04/08/20 15:00 23:00 07:00 Intake Total 600 ml 3250 ml Output Total 325 ml 1550 ml Balance 275 ml 1700 ml Physical Exam Physical Exam: HEENT: Sclera icterus. General: Alert, Oriented X3, Cooperative Heart: Regular rate, No murmurs Lungs: Clear Abdomen: Soft, No tenderness Extremities: No clubbing, No cyanosis Skin: No rashes, No breakdown Review of Systems Review of Systems: NO N/V NO dizziness Assessment and Plan Assessmemt and Plan Problems Medical Problems: (1) Incarcerated hernia Status: Acute (2) SBO (small bowel obstruction) Status: Acute (3) SOB (shortness of breath) Status: Acute Plan: 1) Probable discharge for now: 2) DVT prophylaxis 3) IV fluids 4) Home meds 5) Full code 6) Appreciate subspecialty input Comment Review of Relevant I have reviewed the following items ronaldo (where applicable) has been applied. Medications: Current Medications Medications (Trade) Dose Ordered Sig/West Route PRN Reason Start Time Stop Time Status Last Admin Dose Admin Pantoprazole Sodium (Protonix) 40 mg DAILYAC PO 04/07/20 16:30 04/08/20 05:47 Spironolactone (Aldactone) 50 mg DAILY PO 04/07/20 13:00 04/08/20 09:28 Justifications for Admission Other Justification NILO HALLMAN III DO Apr 08, 2020 12:36
--- NOTE | 2020-04-08 13:20 | PDOC ---
G I PROGRESS NOTE Reason for Follow-up Cirrhosis/abd pain Subjective Tolerating po s/p hernia repair Physical Exam Lungs clear CV S1 S2 ABD Incisions intact Review of Relevant I have reviewed the following items ronaldo (where applicable) has been applied. Labs Laboratory Tests Test 04/07/20 04:00 White Blood Count 6.3 x10^3/uL (4.0-11.0) Red Blood Count 3.10 x10^6/uL (4.30-5.70) Hemoglobin 10.2 g/dL (13.0-17.5) Hematocrit 28.4 % (39.0-53.0) Mean Corpuscular Volume 92 fL (79-100) Mean Corpuscular Hemoglobin 33 pg (25-35) Mean Corpuscular Hemoglobin Concent 36 g/dL (31-37) Red Cell Distribution Width 15.3 % (11.5-14.5) Platelet Count 30 x10^3/uL (140-400) Prothrombin Time 20.7 SEC (11.7-14.0) Prothromb Time International Ratio 1.8 (0.8-1.1) Sodium Level 136 mmol/L (136-145) Potassium Level 3.8 mmol/L (3.5-5.1) Chloride Level 106 mmol/L (98-107) Carbon Dioxide Level 22 mmol/L (21-32) Anion Gap 8 (6-14) Blood Urea Nitrogen 19 mg/dL (8-26) Creatinine 0.6 mg/dL (0.7-1.3) Estimated GFR (Cockcroft-Gault) 145.0 BUN/Creatinine Ratio 32 (6-20) Glucose Level 79 mg/dL (70-99) Calcium Level 7.9 mg/dL (8.5-10.1) Total Bilirubin 6.7 mg/dL (0.2-1.0) Aspartate Amino Transf (AST/SGOT) 25 U/L (15-37) Alanine Aminotransferase (ALT/SGPT) 26 U/L (16-63) Alkaline Phosphatase 90 U/L (46-116) Total Protein 5.0 g/dL (6.4-8.2) Albumin 2.2 g/dL (3.4-5.0) Albumin/Globulin Ratio 0.8 (1.0-1.7) Medications Current Medications Sodium Chloride 1,000 ml @ 1,000 mls/hr 1X ONCE IV Last administered on 04/02/20at 18:45; Start 04/02/20 at 17:45; Stop 04/02/20 at 18:44; Status DC Ondansetron HCl (Zofran) 4 mg 1X ONCE IV Last administered on 04/02/20at 18:41; Start 04/02/20 at 17:45; Stop 04/02/20 at 17:46; Status DC Morphine Sulfate (Morphine Sulfate) 4 mg 1X ONCE IV Last administered on 04/02/20at 18:41; Start 04/02/20 at 17:45; Stop 04/02/20 at 17:46; Status DC Iohexol (Omnipaque 300 Mg/ml) 75 ml 1X ONCE IV Last administered on 04/02/20at 18:15; Start 04/02/20 at 18:15; Stop 04/02/20 at 18:19; Status DC Sodium Chloride 1,000 ml @ 100 mls/hr Q10H IV Last administered on 04/04/20at 01:12; Start 04/02/20 at 21:00; Stop 04/05/20 at 09:39; Status DC Ondansetron HCl (Zofran) 4 mg PRN Q4HRS PRN IV NAUSEA/VOMITING Last administered on 04/03/20at 07:48; Start 04/02/20 at 19:45 Zolpidem Tartrate (Ambien) 5 mg PRN QHS PRN PO INSOMNIA; Start 04/02/20 at 19:45 Diphenhydramine HCl (Benadryl) 25 mg PRN Q4HRS PRN IVP ITCHING; Start 04/02/20 at 19:45 Docusate Sodium (Colace) 100 mg PRN BID PRN PO HARD STOOLS; Start 04/02/20 at 19:45 Albuterol Sulfate (Ventolin Neb Soln) 2.5 mg PRN Q4HRS PRN NEB SHORTNESS OF BREATH; Start 04/02/20 at 19:45 Guaifenesin (Robitussin) 200 mg PRN Q4HRS PRN PO COUGH; Start 04/02/20 at 19:45 Lorazepam (Ativan) 0.5 mg PRN Q4HRS PRN PO ANXIETY / AGITATION; Start 04/02/20 at 19:45 Fentanyl Citrate (Fentanyl 2ml Vial) 75 mcg PRN Q2HR PRN IVP SEVERE PAIN 7-10 Last administered on 04/03/20at 07:51; Start 04/02/20 at 19:45; Stop 04/05/20 at 09:40; Status DC Info (CONTRAST GIVEN -- Rx MONITORING) 1 each PRN DAILY PRN MC SEE COMMENTS; Start 04/02/20 at 19:00; Stop 04/04/20 at 18:59; Status DC Ondansetron HCl (Zofran) 4 mg PRN Q6HRS PRN IV NAUSEA/VOMITING; Start 04/03/20 at 09:45; Stop 04/04/20 at 09:44; Status DC Fentanyl Citrate (Fentanyl 2ml Vial) 25 mcg PRN Q5MIN PRN IV MILD PAIN 1-3 Last administered on 04/03/20at 14:36; Start 04/03/20 at 09:45; Stop 04/04/20 at 09:44; Status DC Fentanyl Citrate (Fentanyl 2ml Vial) 50 mcg PRN Q5MIN PRN IV MODERATE TO SEVERE PAIN; Start 04/03/20 at 09:45; Stop 04/04/20 at 09:44; Status DC Morphine Sulfate (Morphine Sulfate) 1 mg PRN Q10MIN PRN IV SEVERE PAIN 7-10 Last administered on 04/03/20at 14:58; Start 04/03/20 at 09:45; Stop 04/04/20 at 09:44; Status DC Ringer's Solution 1,000 ml @ 30 mls/hr Q24H IV Last administered on 04/03/20at 15:24; Start 04/03/20 at 09:45; Stop 04/03/20 at 21:44; Status DC Hydromorphone HCl (Dilaudid) 0.5 mg PRN Q10MIN PRN IV SEV PAIN, Second choice; Start 04/03/20 at 09:45; Stop 04/04/20 at 09:44; Status DC Prochlorperazine Edisylate (Compazine) 5 mg PACU PRN PRN IV NAUSEA, MRX1 Last administered on 04/03/20at 14:55; Start 04/03/20 at 09:45; Stop 04/04/20 at 09:44; Status DC Sevoflurane (Ultane) 90 ml STK-MED ONCE IH ; Start 04/03/20 at 10:49; Stop 04/03/20 at 10:50; Status DC Fentanyl Citrate (Fentanyl 2ml Vial) 100 mcg STK-MED ONCE .ROUTE ; Start 04/03/20 at 10:49; Stop 04/03/20 at 10:50; Status DC Succinylcholine Chloride (Anectine) 200 mg STK-MED ONCE .ROUTE ; Start 04/03/20 at 10:49; Stop 04/03/20 at 10:50; Status DC Glycopyrrolate (Robinul) 1 mg STK-MED ONCE .ROUTE ; Start 04/03/20 at 10:50; Stop 04/03/20 at 10:50; Status DC Neostigmine [place] (Neostigmine Methylsulfate) 5 mg STK-MED ONCE .ROUTE ; Start 04/03/20 at 10:50; Stop 04/03/20 at 10:50; Status DC Rocuronium [place] (Zemuron) 50 mg STK-MED ONCE .ROUTE ; Start 04/03/20 at 10:50; Stop 04/03/20 at 10:50; Status DC Propofol (Diprivan) 200 mg STK-MED ONCE IV ; Start 04/03/20 at 10:50; Stop 04/03/20 at 10:50; Status DC Dexamethasone Sodium Phosphate (Decadron) 4 mg STK-MED ONCE .ROUTE ; Start 04/03/20 at 10:50; Stop 04/03/20 at 10:50; Status DC Lidocaine HCl (Lidocaine Pf 2% Vial) 5 ml STK-MED ONCE .ROUTE ; Start 04/03/20 at 10:50; Stop 04/03/20 at 10:50; Status DC Ondansetron HCl (Zofran) 4 mg STK-MED ONCE .ROUTE ; Start 04/03/20 at 10:50; Stop 04/03/20 at 10:50; Status DC Acetaminophen (Tylenol) 650 mg 1X PRN PRN PO PRE-TRANSFUSION; Start 04/03/20 at 11:00; Stop 04/04/20 at 10:59; Status DC Diphenhydramine HCl (Benadryl Oral Elixir) 12.5 mg 1X PRN PRN PO PRE- TRANSFUSION; Start 04/03/20 at 11:00; Stop 04/04/20 at 10:59; Status DC Diphenhydramine HCl (Benadryl) 25 mg PRN 1X PRN PO PRE-TRANSFUSION; Start 04/03/20 at 11:00; Stop 04/04/20 at 10:59; Status DC Hydromorphone HCl (Dilaudid) 0.2 mg PRN Q2HR PRN IVP PAIN; Start 04/03/20 at 11:00; Stop 04/05/20 at 09:40; Status DC Bupivacaine HCl/ Epinephrine Bitart (Sensorcain-Epi 0.5%-1:866331 Mpf) 30 ml STK-MED ONCE .ROUTE ; Start 04/03/20 at 11:46; Stop 04/03/20 at 11:46; Status DC Cefoxitin Sodium (Mefoxin) 2 gm 1X PREOP PRN IVP PRIOR TO PROCEDURE Last administered on 04/03/20at 12:54; Start 04/03/20 at 12:45; Stop 04/05/20 at 12:37; Status DC Fentanyl Citrate (Fentanyl 2ml Vial) 100 mcg STK-MED ONCE .ROUTE ; Start 04/03/20 at 13:05; Stop 04/03/20 at 13:05; Status DC Rocuronium [place] (Zemuron) 50 mg STK-MED ONCE .ROUTE ; Start 04/03/20 at 13:24; Stop 04/03/20 at 13:25; Status DC Propofol (Diprivan) 200 mg STK-MED ONCE IV ; Start 04/03/20 at 13:57; Stop 04/03/20 at 13:57; Status DC Lidocaine HCl (Lidocaine Pf 2% Vial) 5 ml STK-MED ONCE .ROUTE ; Start 04/03/20 at 13:58; Stop 04/03/20 at 13:58; Status DC Sodium Chloride (Normal Saline Flush) 3 ml QSHIFT PRN IV AFTER MEDS AND BLOOD DRAWS; Start 04/03/20 at 14:45 Ringer's Solution 1,000 ml @ 100 mls/hr Q10H IV Last administered on 04/08/20at 04:07; Start 04/03/20 at 14:44 Naloxone HCl (Narcan) 0.4 mg PRN Q2MIN PRN IV SEE INSTRUCTIONS; Start 04/03/20 at 14:45 Sodium Chloride 1,000 ml @ 25 mls/hr Q24H IV Last administered on 04/06/20at 16:20; Start 04/03/20 at 14:44 Morphine Sulfate 30 ml @ 0 mls/hr CONT PRN PRN IV PER PROTOCOL Last administered on 04/03/20at 15:14; Start 04/03/20 at 14:45; Stop 04/07/20 at 09:12; Status DC Pantoprazole Sodium (PROTONIX VIAL for IV PUSH) 40 mg DAILYAC IVP Last administered on 04/07/20at 06:22; Start 04/05/20 at 16:30; Stop 04/07/20 at 12:23; Status DC Acetaminophen/ Hydrocodone Bitart (Lortab 5/325) 1 tab PRN Q4HRS PRN PO MODERATE TO SEVERE PAIN Last administered on 04/08/20at 04:11; Start 04/07/20 at 09:15 Pantoprazole Sodium (Protonix) 40 mg DAILYAC PO Last administered on 04/08/20at 05:47; Start 04/07/20 at 16:30 Spironolactone (Aldactone) 50 mg DAILY PO Last administered on 04/08/20at 09:28; Start 04/07/20 at 13:00 Active Scripts Active Reported Amoxicillin 500 Mg Capsule 1 Cap PO TID Spironolactone 25 Mg Tablet 1 Tab PO BID Furosemide 40 Mg Tablet 1 Tab PO DAILY Vitals/I & O Vital Sign - Last 24 Hours 04/07/20 04/07/20 04/07/20 04/07/20 15:00 17:40 18:40 19:00 Temp 98.3 97.8 98.3 97.8 Pulse 82 80 Resp 18 18 B/P (MAP) 130/53 (78) 139/56 (83) Pulse Ox 100 98 O2 Delivery Room Air Room Air Room Air Room Air 04/07/20 04/07/20 04/08/20 04/08/20 20:00 23:00 03:00 04:11 Temp 98.2 98.5 98.2 98.5 Pulse 75 66 Resp 20 17 14 B/P (MAP) 126/57 (80) 133/55 (81) Pulse Ox 99 97 O2 Delivery Room Air Room Air Room Air Room Air 04/08/20 04/08/20 04/08/20 04/08/20 05:11 07:00 08:00 11:00 Temp 98.1 97.9 98.1 97.9 Pulse 71 79 Resp 14 17 18 B/P (MAP) 112/50 (70) 136/70 (92) Pulse Ox 98 98 O2 Delivery Room Air Room Air Room Air Room Air l Intake and Output 04/07/20 04/07/20 04/08/20 15:00 23:00 07:00 Intake Total 600 ml 3250 ml Output Total 325 ml 1550 ml Balance 275 ml 1700 ml Problem List Problems Medical Problems: (1) Incarcerated hernia Status: Acute (2) SBO (small bowel obstruction) Status: Acute (3) SOB (shortness of breath) Status: Acute Assessment Cirrhosis- s/p hernia repair, recommended op LFTS with PMD in 2-3 weeks, stable for release from Gi standpoint, No additional recommendations at this time. Justicifation of Admission Dx: Justifications for Admission: Justification of Admission Dx: Yes BERNADINE TOTH MD Apr 08, 2020 13:20
[2020-04-08] MEDS: IV NORMAL SALINE 1000ML BAG 1,000 ML IV SCH (14:44)
[2020-04-08 15:00] VITALS: BP 127/60
[2020-04-08 19:35] VITALS: BP 132/75
[2020-04-08 23:00] VITALS: BP 129/56
[2020-04-09] MEDS: ONDANSETRON PF 4 MG/2 ML VIAL. IV PRN (01:05)
[2020-04-09] MEDS: HYDROcodone/APAP 5/325MG 1 TAB TABLET PO PRN ×2 (02:12→12:20)
[2020-04-09 03:46] VITALS: BP 124/48
[2020-04-09] MEDS: PANTOPRAZOLE 40 MG TABLET.DR. PO SCH (05:54)
[2020-04-09 06:50] LABS: CALCIUM 7.8 mg/dL (8.5-10.1); CREATININE 0.6 mg/dL (0.7-1.3); POTASSIUM 4.1 mmol/L (3.5-5.1)
[2020-04-09 07:00] VITALS: BP 126/68
[2020-04-09] MEDS: SPIRONOLACTONE 25 MG TABLET PO SCH (07:44)
--- NOTE | 2020-04-09 10:01 | PDOC ---
SURGICAL PROGRESS NOTE DATE: 04/09/20 TIME: 09:57 Subjective had a stool yesterday had some pain with eating yesterday evening, did not have today Vital Signs Vital Signs Date Time Temp Pulse Resp B/P (MAP) Pulse Ox O2 Delivery O2 Flow Rate FiO2 04/09/20 08:00 Room Air 04/09/20 07:00 97.6 73 18 126/68 (87) 97 97.6 I&O Intake and Output 04/09/20 06:59 Intake Total 1680 ml Balance 1680 ml Intake Oral 1680 ml # Voids 6 General: Alert, Oriented X3, Cooperative Abdomen: Soft, No tenderness Labs Laboratory Tests Test 04/09/20 06:00 Sodium Level 136 mmol/L (136-145) Potassium Level 4.1 mmol/L (3.5-5.1) Chloride Level 105 mmol/L (98-107) Carbon Dioxide Level 24 mmol/L (21-32) Anion Gap 7 (6-14) Blood Urea Nitrogen 13 mg/dL (8-26) Creatinine 0.6 mg/dL (0.7-1.3) Estimated GFR (Cockcroft-Gault) 145.0 Glucose Level 94 mg/dL (70-99) Calcium Level 7.8 mg/dL (8.5-10.1) Laboratory Tests Test 04/09/20 06:00 Sodium Level 136 mmol/L (136-145) Potassium Level 4.1 mmol/L (3.5-5.1) Chloride Level 105 mmol/L (98-107) Carbon Dioxide Level 24 mmol/L (21-32) Anion Gap 7 (6-14) Blood Urea Nitrogen 13 mg/dL (8-26) Creatinine 0.6 mg/dL (0.7-1.3) Estimated GFR (Cockcroft-Gault) 145.0 Glucose Level 94 mg/dL (70-99) Calcium Level 7.8 mg/dL (8.5-10.1) Problem List Problems Medical Problems: (1) Incarcerated hernia Status: Acute (2) SBO (small bowel obstruction) Status: Acute (3) SOB (shortness of breath) Status: Acute Assessment/Plan if tolerates lunch ok to dc home Justicifation of Admission Dx: Justifications for Admission: Justification of Admission Dx: Yes KASSIDY MONTEJO SANDWICH MAKER Apr 09, 2020 10:01
[2020-04-09] MEDS ORDERED: HYDR-2761 PO (10:02)
[2020-04-09] MEDS: IV RINGERS,LACTATED 1000ML 1,000 ML IV SCH (10:24)
[2020-04-09] MEDS: IV NORMAL SALINE 1000ML BAG 1,000 ML IV SCH (10:25)
--- NOTE | 2020-04-09 10:32 | NUR ---
SW following. Discussed with RN, per surgery - if pt tolerates lunch, okay to discharge home. Dr. Alas aware. RN advised no SW needs.
[2020-04-09 11:07] VITALS: BP 139/64
--- NOTE | 2020-04-09 11:14 | PDOC ---
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 Patient is sitting up at bedside chair. Patient stated his surgeon told him of possible liver transplant in the future. Discussed with patient spouse about possible need for liver transplant. Discussed with RN. 04/06/2020 Pt seen and examined in room Pt stated he quit drinking 5 months ago DW case loader operator CHRISTIAN RN 04/05/2020 Pt seen and examined. DW with case management. DW with RN. 44 year old male, accompanied by his , presents to the emergency department with complaints of dull abdominal pain around his umbilicus that began 6 days ago and became severe today. Patient reports history of alcoholic cirrhosis and 3 abdominal hernias. He reports that he noticed bruising and bulging of his bellybutton today that was abnormal for him. Patient states that the pain radiates to his groin and that he is unable to stand straight because the pain is so severe. Patient reports that he stopped drinking alcohol 9 months ago. He denies any abdominal bloating, confusion, nausea, vomiting, or diarrhea. The patient denies any recent heavy lifting or coughing he currently rates his pain a 10 out of 10 on the pain scale pain is worse if the area is touched, there are no alleviating factors. 04/04/2020 No acute events overnight. Patient status post umbilical hernia repair and small bowel resection. Abdominal binder in place. Pain is well controlled. Patient's chart, labs, images were reviewed and discussed with RN Vitals/I&O Vitals/I&O: Vital Signs Date Time Temp Pulse Resp B/P (MAP) Pulse Ox O2 Delivery O2 Flow Rate FiO2 04/09/20 11:07 97.9 67 18 139/64 (89) 100 Room Air 97.9 I & O 04/08/20 04/08/20 04/09/20 15:00 23:00 07:00 Intake Total 900 ml 780 ml Balance 900 ml 780 ml Physical Exam Physical Exam: HEENT: Sclera icterus. General: Alert, Oriented X3, Cooperative Heart: Regular rate, No murmurs Lungs: Clear Abdomen: Soft, No tenderness Extremities: No clubbing, No cyanosis Skin: No rashes, No breakdown Labs Labs: Laboratory Tests Test 04/09/20 06:00 Sodium Level 136 mmol/L (136-145) Potassium Level 4.1 mmol/L (3.5-5.1) Chloride Level 105 mmol/L (98-107) Carbon Dioxide Level 24 mmol/L (21-32) Anion Gap 7 (6-14) Blood Urea Nitrogen 13 mg/dL (8-26) Creatinine 0.6 mg/dL (0.7-1.3) Estimated GFR (Cockcroft-Gault) 145.0 Glucose Level 94 mg/dL (70-99) Calcium Level 7.8 mg/dL (8.5-10.1) Review of Systems Review of Systems: NO dizziness NO N/v Assessment and Plan Assessmemt and Plan Problems Medical Problems: (1) Incarcerated hernia Status: Acute (2) SBO (small bowel obstruction) Status: Acute (3) SOB (shortness of breath) Status: Acute 04/09/2020 Plan: 1) Plan to discharge this afternoon 2) Patient going to follow up with [facility] 3) Home meds 4) DVT prophylaxis 5) Appreciated subspecialty input Comment Review of Relevant I have reviewed the following items ronaldo (where applicable) has been applied. Justifications for Admission Other Justification NILO HALLMAN III DO Apr 09, 2020 11:14
--- NOTE | 2020-04-09 11:16 | SNU/HH DC ---
DISCHARGE WITH HOME HEALTH DISCHARGE INFORMATION: Final Diagnosis: Problems Medical Problems: (1) Incarcerated hernia Status: Acute (2) SBO (small bowel obstruction) Status: Acute (3) SOB (shortness of breath) Status: Acute Condition on Discharge: Stable CODE STATUS: Code Status: Full HOME HEALTH: Face to Face: I certify this patient is under my care and that I, or a nurse practitioner or physician's assistant mechanic working with me, had a face to face encounter that meets the physician face to face encounter requirements with this patient on []. Medical Complications: Other (End-stage liver disease recent surgery) Nursing Home For: Assess & Educate Safety RN For Eval/Treatment: Yes Physical Therapy For: Evalulation/Treatment Occupational Therapy For: Evaluation/Treatment Home Health Aide For: Self-care CMM OPERATOR For: Community Resources Pt Meets Homebound Status: Poor coordination w/ amb. POST DISCHARGE ORDERS: DIET AFTER DISCHARGE: Hepatic diet CERTIFICATION STATEMENT: Certification Statement: Certification Statement: Based on the above finding, I certify that this patient is confined to the home and needs intermittent mcfp care, physical therapy and/or speech therapy, or continues to need occupational therapy.~ This patient is under my care, and I have initiated the establishment of the plan of care.~ This patient will be followed by myself or a community physician who will periodically review the plan of care. Home Meds Active Scripts Hydrocodone Bit/Acetaminophen (HYDROCODONE-APAP 5-325 ) 1 Tab Tablet, 1 TAB PO PRN Q4HRS PRN for MODERATE TO SEVERE PAIN, #30 TAB 0 Refills Prov:KASSIDY MONTEJO OFFICE SYSTEM ANALYST 04/09/20 Reported Medications Amoxicillin (AMOXICILLIN) 500 Mg Capsule, 1 CAP PO TID for molar infection , #30 CAP 04/04/20 Spironolactone (SPIRONOLACTONE) 25 Mg Tablet, 1 TAB PO BID for edema, #90 TAB 1 Refill 04/04/20 Furosemide (FUROSEMIDE) 40 Mg Tablet, 1 TAB PO DAILY for edema, #30 TAB 5 Refills 04/04/20 NILO HALLMAN III DO Apr 09, 2020 11:16
[2020-04-09] MEDS ORDERED: PANT40TA77 PO (11:44)
--- NOTE | 2020-04-09 14:09 | NUR ---
Discharge Note: BETITO NEFF Discharge instructions and discharge home medications reviewed with Patient and a copy given. All questions have been answered and understanding verbalized. The following instructions and handouts were given: hernia repair Discontinued lines and drains: Peripheral IV intact. Patient discharged to Home or Self Care with Self via Wheelchair
--- NOTE | 2020-04-11 13:43 | DS ---
DATE OF DISCHARGE: 04/09/2020 ADMISSION DIAGNOSIS: Abdominal pain. DISCHARGE DIAGNOSES: 1. Postoperative day #6 umbilical incarcerated hernia repair. 2. 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 HOSPITAL COURSE: The patient is a pleasant 44-year-old male who presented with shortness of breath and abdominal pain. He was noted to have an umbilical incarcerated hernia. He was admitted. We consulted General Surgery. He was taken for surgical correction. Postoperatively, he did well, but he does have end-stage liver disease. I checked an INR, it is 1.8. He is little jaundiced. I explained to him, he is eventually going to need a liver transplant. I told him to please quit drinking. He has been drinking a lot of Zach Siegel. DISPOSITION: Home. ACTIVITY: As tolerated. DIET: Low sodium. MEDICATIONS: Please see the MRAD. TOTAL TIME: 34 minutes. EMMETTL Samantha HALLMAN DO DR: JD/namrata JOB#: [id number] / [id number]
== END 2020-04-09 14:12 | disposition home or self-care (01) | DRG 329 ==
LOC: ER 14:53 → 4 NORTH 20:59
PROVIDERS: ADMIT Internal Medicine; ATTEND Internal Medicine
PROC: 0DB80ZZ Excision of Small Intestine, Open Approach (ICD-10-PCS; 2020-04-03)
PROC: 0D9670Z Drainage of Stomach with Drainage Device, Via Natural or Artificial Opening (ICD-10-PCS; 2020-04-03)
PROC: 30233R1 Transfusion of Nonautologous Platelets into Peripheral Vein, Percutaneous Approach (ICD-10-PCS; 2020-04-03)
PROC: 0WQF0ZZ Repair Abdominal Wall, Open Approach (ICD-10-PCS; principal; 2020-04-03 12:00)
DX: K42.0 Umbilical hernia with obstruction, without gangrene (principal); E43 Unspecified severe protein-calorie malnutrition; D68.4 Acquired coagulation factor deficiency; K76.6 Portal hypertension; D63.8 Anemia in other chronic diseases classified elsewhere; D69.59 Other secondary thrombocytopenia; Z68.31 Body mass index [BMI] 31.0-31.9, adult; K70.30 Alcoholic cirrhosis of liver without ascites; D64.9 Anemia, unspecified; Z20.828 Contact with and (suspected) exposure to other viral communicable diseases
CPT/HCPCS: 36415; 74018; 74177; 76705; 80048; 80053; 81001; 82140; 82607; 83540; 83550; 83690; 83735; 85025; 85027; 85610; 85730; 86705; 86709; 86803; 86850; 86900; 86901; 87340; 87426; 88302; 88307; 94760; 96361; 96374; 96375; 99285; A7015; C9113; J0330; J0694; J0780; J1100; J2270; J2405; J2704; J2710; J3010; J3490; J7030; J7120; P9035; Q9967; G0378; U0003-CS